=== PATIENT | female | born 1955 | race Caucasian/White ===

== ENCOUNTER 2016-08-13 15:50 | Observation (INO) | payer OTHER ==
[~2016-08-13] VITALS: Ht 160 cm; Wt 38.5 kg
[~2016-08-13 15:50] MED LIST: ESCI20TA PO; HYDR-3533 PO; LISI10TA3 PO; OMEP20TA PO; PROP20TA3 PO
[2016-08-13 15:52] VITALS: BP 138/75; PULSE 81; RESP 14; TEMP 98.4; O2SAT 97
[2016-08-13 17:32] LABS: AUTOMATED NEUTROPHIL # 7.4 TH/MM3 (1.8-7.7); BASOPHIL # 0.1 TH/MM3 (0-0.2); BASOPHIL % 0.5 % (0.0-2.0); EOSINOPHIL # 0.1 TH/MM3 (0-0.4); HEMATOCRIT 40.1 % (35.0-46.0); HEMO FLAGS DIFF FINAL; LYMPHOCYTE # 3.1 TH/MM3 (1.0-4.8); MEAN CORPUSCULAR HEMOGLOBIN 32.1 PG (27.0-34.0); MEAN CORPUSCULAR HGB CONC 34.5 % (32.0-36.0); NEUT % 64.5 % (16.0-70.0); PLATELET COUNT 265 TH/MM3 (150-450); RED BLOOD COUNT 4.31 MIL/MM3 (4.00-5.30); RED CELL DISTRIBUTION WIDTH 13.4 % (11.6-17.2); WHITE BLOOD COUNT 11.5 TH/MM3 (4.0-11.0)
[2016-08-13 17:58] LABS: ALKALINE PHOSPHATASE 72 U/L (45-117); TOTAL BILIRUBIN ADULT 0.4 MG/DL (0.2-1.0)
[2016-08-13 18:11] LABS: ALT (GPT) 26 U/L (10-53); ANION GAP 8 MEQ/L (5-15); AST (GOT) 27 U/L (15-37); BICARBONATE 28.5 MEQ/L (21.0-32.0); BLOOD UREA NITROGEN 18 MG/DL (7-18); CHLORIDE 90 MEQ/L (98-107); GLOMERULAR FILTRATION RATE 74 ML/MIN (>89); POTASSIUM 3.8 MEQ/L (3.5-5.1); SODIUM (NA) 126 MEQ/L (136-145)
--- NOTE | 2016-08-13 18:39 | PD ---
HPI Chief Complaint: GI Complaint Time Seen by Provider: 18:38 Travel History International Travel<30 days: No Contact w/Intl Traveler<30days: No Traveled to known affect area: No History of Present Illness HPI 61-year-old female came to the emergency room with her with long- standing history of nausea, vomiting, poor appetite, depression and chronic back pain. She says that she knows she needs to be seen and get workup but she does not have the money to do it. Meanwhile she is losing weight. Patient is an occasional drinker of alcohol and smoker. Vital signs were within normal limits. Blood test was done prior to her coming into the ER in triage which showed elevated lipase and hyponatremia. [facility] Past Medical History Narrative Medical List of her past medical history as reviewed from the nursing note. Heart Rhythm Problems: No Cardiac Catheterization: No Cardiovascular Problems: Yes (cp today) High Cholesterol: No Congestive Heart Failure: No Diabetes: No Hypertension: Yes Respiratory: Yes (ASTHMA) Past Surgical History Coronary Artery Bypass Graft: No Tonsillectomy: Yes Social History Alcohol Use: Yes (occ) Tobacco Use: Yes (1/3 a pack a day ) Substance Use: No Allergies-Medications (Allergen,Severity, Reaction): Coded Allergies: No Known Allergies (Verified , 08/13/16) Comments No known drug allergies. Reported Meds & Prescriptions Reported Meds & Active Scripts Active Lisinopril 10 Mg Tab 10 Mg PO DAILY Propranolol (Propranolol HCl) 20 Mg Tab 20 Mg PO Q12HR Omeprazole 20 Mg Tab 20 Mg PO DAILY Escitalopram (Escitalopram Oxalate) 20 Mg Tab 20 Mg PO DAILY Reported Lortab (Hydrocodone-Acetaminophen) 5-325 Mg Tab 1 Tab PO BID PRN Narrative Medication List of her home medications reviewed from the nursing note. Review of Systems Except as stated in HPI: all other systems reviewed are Neg Physical Exam Narrative GENERAL: Awake, alert, moderate distress SKIN: Warm and dry. HEAD: Atraumatic. Normocephalic. EYES: Pupils equal and round. No scleral icterus. No injection or drainage. ENT: No nasal bleeding or discharge. Mucous membranes pink and moist. NECK: Trachea midline. No JVD. CARDIOVASCULAR: Regular rate and rhythm. No murmur appreciated. RESPIRATORY: No accessory muscle use. Clear to auscultation. Breath sounds equal bilaterally. GASTROINTESTINAL: Abdomen soft, epigastric tenderness, nondistended. Hepatic and splenic margins not palpable. MUSCULOSKELETAL: No obvious deformities. No clubbing. No cyanosis. No edema. NEUROLOGICAL: Awake and alert. No obvious cranial nerve deficits. Motor grossly within normal limits. Normal speech. PSYCHIATRIC: Appropriate mood and affect; insight and judgment normal. Data Data Last Documented VS Vital Signs Date Time Temp Pulse Resp B/P Pulse Ox O2 Delivery O2 Flow Rate FiO2 08/13/16 18:43 71 18 150/75 99 Room Air 08/13/16 15:52 98.4 Orders Complete Blood Count With Diff (08/13/16 16:56) Comprehensive Metabolic Panel (08/13/16 16:56) Urinalysis - C+S If Indicated (08/13/16 16:56) Lipase (08/13/16 16:56) Sodium Chlor 0.9% 1000 Ml Inj (Ns 1000 M (08/13/16 19:00) Ondansetron Inj (Zofran Inj) (08/13/16 19:00) Ct Abd/Pel W Iv Contrast(Rout) (08/13/16 ) Iohexol 350 Inj (Omnipaque 350 Inj) (08/13/16 19:07) Urine Culture (08/13/16 19:10) Ceftriaxone Inj (Rocephin Inj) (08/13/16 19:45) Admit Order (Ed Use Only) (08/13/16 19:58) Labs Laboratory Tests Test 08/13/16 08/13/16 17:15 19:10 White Blood Count 11.5 TH/MM3 Red Blood Count 4.31 MIL/MM3 Hemoglobin 13.8 GM/DL Hematocrit 40.1 % Mean Corpuscular Volume 93.0 FL Mean Corpuscular Hemoglobin 32.1 PG Mean Corpuscular Hemoglobin 34.5 % Concent Red Cell Distribution Width 13.4 % Platelet Count 265 TH/MM3 Mean Platelet Volume 7.4 FL Neutrophils (%) (Auto) 64.5 % Lymphocytes (%) (Auto) 27.0 % Monocytes (%) (Auto) 7.0 % Eosinophils (%) (Auto) 1.0 % Basophils (%) (Auto) 0.5 % Neutrophils # (Auto) 7.4 TH/MM3 Lymphocytes # (Auto) 3.1 TH/MM3 Monocytes # (Auto) 0.8 TH/MM3 Eosinophils # (Auto) 0.1 TH/MM3 Basophils # (Auto) 0.1 TH/MM3 CBC Comment DIFF FINAL Differential Comment Sodium Level 126 MEQ/L Potassium Level 3.8 MEQ/L Chloride Level 90 MEQ/L Carbon Dioxide Level 28.5 MEQ/L Anion Gap 8 MEQ/L Blood Urea Nitrogen 18 MG/DL Creatinine 0.79 MG/DL Estimat Glomerular Filtration 74 ML/MIN Rate Random Glucose 117 MG/DL Calcium Level 8.9 MG/DL Total Bilirubin 0.4 MG/DL Aspartate Amino Transf 27 U/L (AST/SGOT) Alanine Aminotransferase 26 U/L (ALT/SGPT) Alkaline Phosphatase 72 U/L Total Protein 7.1 GM/DL Albumin 3.8 GM/DL Lipase 728 U/L Urine Color YELLOW Urine Turbidity CLEAR Urine pH 7.0 Urine Specific [place] 1.010 Urine Protein TRACE mg/dL Urine Glucose (UA) NEG mg/dL Urine Ketones TRACE mg/dL Urine Occult Blood TRACE Urine Nitrite NEG Urine Bilirubin NEG Urine Urobilinogen 0.2 MG/DL Urine Leukocyte Esterase LARGE Urine RBC 15 /hpf Urine WBC 73 /hpf Urine Squamous Epithelial 2 /hpf Cells Microscopic Urinalysis Comment CULTURE INDICATED MDM Medical Decision Making Medical Screen Exam Complete: Yes Emergency Medical Condition: Yes Medical Record Reviewed: Yes Differential Diagnosis Acute pancreatitis, acute cholecystitis, dehydration, hyponatremia Narrative Course 6:55 PM I ordered a CAT scan of her abdomen and in analysis. CAT scan ordered IV fluid bolus and Zofran for her nausea. Case will be signed over to the oncoming ER physician. Procedures EKG Prior to Arrival: Chel De La Cruz MD Aug 13, 2016 18:39
[2016-08-13 18:43] VITALS: BP 150/75; PULSE 71; RESP 18; O2SAT 99
[2016-08-13] MEDS ORDERED: SODIUM CHLOR 0.9% 1000 ML INJ 1,000 ML IV ONE (19:00)
[2016-08-13] MEDS ORDERED: ONDANSETRON HCL 4 MG/2 ML VIAL IV PUSH ONE (19:00)
[2016-08-13] MEDS ORDERED: IOHEXOL 350 MG/ML 10 ML VIAL (for RAD DIAG) IV ONE (19:07)
--- NOTE | 2016-08-13 19:17 | RADRPT ---
EXAM DATE/TIME: 08/13/2016 19:04 [facility] COMPARISON: No previous studies available for comparison. INDICATIONS : Vomiting, diarrhea, weakness and dizziness. IV CONTRAST: 94 cc Omnipaque 350 (iohexol) IV ORAL CONTRAST: No oral contrast ingested. RADIATION DOSE: 4.88 CTDIvol (mGy) MEDICAL HISTORY : Hypertension. Hepatitis C. Scoliosis. SURGICAL HISTORY : Hysterectomy. ENCOUNTER: Initial ACUITY: 1 day PAIN SCALE: 0/10 LOCATION: Abdomen/pelvis TECHNIQUE: Volumetric scanning of the abdomen and pelvis was performed. Using automated exposure control and ad justment of the mA and/or kV according to patient size, radiation dose was kept as low as reasonably achievable to obtain optimal diagnostic quality images. FINDINGS: Calcified splenic granulomas are noted. The bilateral kidneys, adrenal glands, pancreas, liver and ga llbladder are normal in appearance. Stomach unremarkable. Urinary bladder unremarkable. There are no adnexal masses. No evidence of bowel obstruction. The appendix is not definitively visualized. Dextro scoliosis of the spine and degenerative changes. Lung bases are clear. CONCLUSION: 1. Calcified splenic granulomas. 2. No definite inflammatory changes are seen within the abdomen or pelvis. Brady Swanson MD on August 13, 2016 at 19:13 Board Certified Radiologist. This report was verified electronically.
--- NOTE | 2016-08-13 19:35 | PD ---
Physical Exam Narrative Received sign out from previous team to follow up CTa/p and reevaluate. This is a 61yo F with HTN, depression and chronic back pain here with not feeling well. Pt states she has not gotten out of bed for 4 days, not eating much, nauseous, and having nonbloody diarrhea. Pt complains of generalized fatigue. Labs showed mild leukocytosis at 11.5. CMP showed mild hyponatremia at 126 and mild decreased in chloride at 90. Lipase mildly increased at 728. Pt still with some epigastric ttp on exam. UA showed WBC of 73 and large leukocyte. Pt given ceftriaxone 1gm IV. Pt given zofran and NS IVF by previous team. Pt feels generalized weakness, does not feel she is able to get out of bed and not able to eat. Will admit pt for dehydration and pancreatitis. Discussed with Dr. Aviles and accepted for observation. Data Data Last Documented VS Vital Signs Date Time Temp Pulse Resp B/P Pulse Ox O2 Delivery O2 Flow Rate FiO2 08/13/16 18:43 71 18 150/75 99 Room Air 08/13/16 15:52 98.4 Orders Complete Blood Count With Diff (08/13/16 16:56) Comprehensive Metabolic Panel (08/13/16 16:56) Urinalysis - C+S If Indicated (08/13/16 16:56) Lipase (08/13/16 16:56) Sodium Chlor 0.9% 1000 Ml Inj (Ns 1000 M (08/13/16 19:00) Ondansetron Inj (Zofran Inj) (08/13/16 19:00) Ct Abd/Pel W Iv Contrast(Rout) (08/13/16 ) Iohexol 350 Inj (Omnipaque 350 Inj) (08/13/16 19:07) Urine Culture (08/13/16 19:10) Ceftriaxone Inj (Rocephin Inj) (08/13/16 19:45) Admit Order (Ed Use Only) (08/13/16 19:58) Labs Laboratory Tests Test 08/13/16 08/13/16 17:15 19:10 White Blood Count 11.5 TH/MM3 Red Blood Count 4.31 MIL/MM3 Hemoglobin 13.8 GM/DL Hematocrit 40.1 % Mean Corpuscular Volume 93.0 FL Mean Corpuscular Hemoglobin 32.1 PG Mean Corpuscular Hemoglobin 34.5 % Concent Red Cell Distribution Width 13.4 % Platelet Count 265 TH/MM3 Mean Platelet Volume 7.4 FL Neutrophils (%) (Auto) 64.5 % Lymphocytes (%) (Auto) 27.0 % Monocytes (%) (Auto) 7.0 % Eosinophils (%) (Auto) 1.0 % Basophils (%) (Auto) 0.5 % Neutrophils # (Auto) 7.4 TH/MM3 Lymphocytes # (Auto) 3.1 TH/MM3 Monocytes # (Auto) 0.8 TH/MM3 Eosinophils # (Auto) 0.1 TH/MM3 Basophils # (Auto) 0.1 TH/MM3 CBC Comment DIFF FINAL Differential Comment Sodium Level 126 MEQ/L Potassium Level 3.8 MEQ/L Chloride Level 90 MEQ/L Carbon Dioxide Level 28.5 MEQ/L Anion Gap 8 MEQ/L Blood Urea Nitrogen 18 MG/DL Creatinine 0.79 MG/DL Estimat Glomerular Filtration 74 ML/MIN Rate Random Glucose 117 MG/DL Calcium Level 8.9 MG/DL Total Bilirubin 0.4 MG/DL Aspartate Amino Transf 27 U/L (AST/SGOT) Alanine Aminotransferase 26 U/L (ALT/SGPT) Alkaline Phosphatase 72 U/L Total Protein 7.1 GM/DL Albumin 3.8 GM/DL Lipase 728 U/L Urine Color YELLOW Urine Turbidity CLEAR Urine pH 7.0 Urine Specific [place] 1.010 Urine Protein TRACE mg/dL Urine Glucose (UA) NEG mg/dL Urine Ketones TRACE mg/dL Urine Occult Blood TRACE Urine Nitrite NEG Urine Bilirubin NEG Urine Urobilinogen 0.2 MG/DL Urine Leukocyte Esterase LARGE Urine RBC 15 /hpf Urine WBC 73 /hpf Urine Squamous Epithelial 2 /hpf Cells Microscopic Urinalysis Comment CULTURE INDICATED MDM Supervised Visit with JAY: No Diagnosis Primary Impression: Pancreatitis Qualified Code: K85.90 - Acute pancreatitis, unspecified complication status, unspecified pancreatitis type Admitting Information Admitting Physician Requests: Lissette Perales DO Aug 13, 2016 19:35
[2016-08-13 19:37] LABS: GLUCOSE,URINE NEG (NEG); KETONE, URINE TRACE mg/dL (NEG); NITRITE,URINE NEG (NEG); URINE COLOR YELLOW (YELLW/STRAW)
[2016-08-13 19:38] LABS: BLOOD, URINE TRACE (NEG)
[2016-08-13 19:39] LABS: SQUAMOUS EPITHELIAL CELL URINE 2 /hpf (0-5)
[2016-08-13 19:41] LABS: COMMENT (UR) CULTURE INDICATED; CULTURE IF INDICATED CULTURE INDICATED
[2016-08-13] MEDS ORDERED: cefTRIAXone INJ 1,000 MG in SODIUM CHLORIDE 0.9% INJ 100 ML IV ONE (19:45)
[2016-08-13] MEDS ORDERED: ONDANSETRON HCL 4 MG/2 ML VIAL IVP PRN (20:00)
[2016-08-13] MEDS ORDERED: NALOXONE HCL 0.4 MG/ML AMP IV PRN (20:00)
[2016-08-13] MEDS ORDERED: SODIUM CHLORIDE 0.9% FLUSH 5 ML FLUSH FLUSH PRN (20:00)
[2016-08-13] MEDS: SODIUM CHLOR 0.9% 1000 ML INJ 1,000 ML IV SCH (20:45)
[2016-08-13] MEDS: SODIUM CHLORIDE 0.9% FLUSH 5 ML FLUSH FLUSH SCH (21:00)
[2016-08-13 23:00] VITALS: BP 134/65; PULSE 72; RESP 16
[2016-08-14] VITALS (7 sets, daily range): BP systolic 141–164; BP diastolic 69–84; PULSE 68–104; RESP 16–18; O2SAT 95–97
[2016-08-14 04:28] LABS: AUTOMATED NEUTROPHIL # 4.5 TH/MM3 (1.8-7.7); BASOPHIL % 0.3 % (0.0-2.0); EOSINOPHIL # 0.1 TH/MM3 (0-0.4); EOSINOPHIL % 1.1 % (0.0-4.0); HEMATOCRIT 36.2 % (35.0-46.0); HEMO FLAGS DIFF FINAL; LYMPH % 35.4 % (9.0-44.0); LYMPHOCYTE # 2.9 TH/MM3 (1.0-4.8); MEAN CELL VOLUME 92.7 FL (80.0-100.0); MEAN CORPUSCULAR HEMOGLOBIN 31.7 PG (27.0-34.0); MEAN CORPUSCULAR HGB CONC 34.2 % (32.0-36.0); MONO % 7.7 % (0.0-8.0); NEUT % 55.5 % (16.0-70.0); PLATELET COUNT 187 TH/MM3 (150-450); RED BLOOD COUNT 3.91 MIL/MM3 (4.00-5.30); RED CELL DISTRIBUTION WIDTH 13.4 % (11.6-17.2); WHITE BLOOD COUNT 8.1 TH/MM3 (4.0-11.0)
[2016-08-14 05:11] LABS: ALKALINE PHOSPHATASE 60 U/L (45-117); ALT (GPT) 20 U/L (10-53); ANION GAP 7 MEQ/L (5-15); AST (GOT) 17 U/L (15-37); BICARBONATE 29.6 MEQ/L (21.0-32.0); BLOOD UREA NITROGEN 8 MG/DL (7-18); CHLORIDE 96 MEQ/L (98-107); GLOMERULAR FILTRATION RATE 112 ML/MIN (>89); POTASSIUM 3.3 MEQ/L (3.5-5.1); SODIUM (NA) 133 MEQ/L (136-145); TOTAL BILIRUBIN ADULT 0.4 MG/DL (0.2-1.0)
[2016-08-14] MEDS: SODIUM CHLOR 0.9% 1000 ML INJ 1,000 ML IV SCH (05:11)
--- NOTE | 2016-08-14 05:54 | HHI.HP ---
[facility] YARELI Agee Admission Diagnosis Pancreatitis Diagnoses: (1) Pancreatitis (2) UTI (urinary tract infection) (3) Anxiety (4) Depression (5) Hypokalemia (6) Hyponatremia Chief Complaint: Abdominal pain Travel History International Travel<30 Days: No Contact w/Intl Traveler <30 Da: No Traveled to Known Affected Are: No History of Present Illness Mrs. Soto is a 61 year-old female with a past medical history of GERD, osteoporosis, anxiety, depression, and hypertension who presented to the ER on 08/13/16 with complaint of abdominal pain, nausea, vomiting, depression, and anxiety x 4 days; symptoms severe. Labs show elevated lipase of 728 and hyponatremia with sodium 126. Patient is seen in ER holding area. She states that she didn't sleep well Friday or Friday night. She reports a large amount of stress in her family because her 33 year-old son went missing from rehab (alcoholism). States she's never been more depressed in her life. About six months ago was placed on Lexapro for antidepressant medications and propranolol for hypertension, tension headaches and some degree of anxiety relief. Symptoms: Cough. Dizzy. Weak. Abd pain. Nausea. Diarrhea. Poor appetite. Shortness of breath with "panic attacks" only. Denies black or tarry stool, fever. No history of pancreatitis. No alcohol intake. Denies diabetes mellitus, copd, kidney/liver problems, thyroid problems, seizures. . Review of Systems Constitutional: COMPLAINS OF: Fatigue, Dizziness, DENIES: Fever Respiratory: COMPLAINS OF: Cough, Shortness of breath (with panic attacks only) Gastrointestinal: COMPLAINS OF: Abdominal pain, DENIES: Black stools, Bloody stools Neurologic: DENIES: Localized weakness (generalized weakness only), Seizures Psychiatric: COMPLAINS OF: Anxiety, Depression Past Family Social History Past Medical History GERD Osteoporosis Anxiety Depression Hypertension Scoliosis . Past Surgical History Tonsillectomy . Reported Medications Reported Meds & Active Scripts Active Lisinopril 10 Mg Tab 10 Mg PO DAILY Propranolol (Propranolol HCl) 20 Mg Tab 20 Mg PO Q12HR Omeprazole 20 Mg Tab 20 Mg PO DAILY Escitalopram (Escitalopram Oxalate) 20 Mg Tab 20 Mg PO DAILY Reported Lortab (Hydrocodone-Acetaminophen) 5-325 Mg Tab 1 Tab PO BID PRN Allergies: Coded Allergies: No Known Allergies (Verified , 08/13/16) Active Ordered Medications Current Medications Sodium Chloride (NS 1000 ml Inj) 1,000 ml @ 999 mls/hr BOLUS ONCE IV Last administered on 08/13/16 19:09; Start 08/13/16 at 19:00; Stop 08/13/16 at 20:00 ; Status DC Ondansetron HCl (Zofran Inj) 4 mg ONCE ONCE IV PUSH Last administered on 19:14; Start 08/13/16 at 19:00; Stop 08/13/16 at 19:01; Status DC Iohexol 70 ml 70 ml STK-MED ONCE IV Last administered on 08/13/16 19:07; Start 08/13/16 at 19:07; Stop 08/13/16 at 19:08; Status DC Ceftriaxone Sodium 1000 mg/ Sodium Chloride 100 ml @ 200 mls/hr ONCE ONCE IV Last administered on 08/13/16 19:51; Start 08/13/16 at 19:45; Stop 08/13/16 at 20:14; Status DC Sodium Chloride (NS 1000 ml Inj) 1,000 ml @ 100 mls/hr Q10H IV Last administered on 08/14/16 05:11; Start 08/13/16 at 20:00 IV Flush (NS Flush) 2 ml UNSCH PRN FLUSH FLUSH AFTER USING IV ACCESS; Start 05/20 at 20:00 IV Flush (NS Flush) 2 ml BID FLUSH ; Start 08/13/16 at 21:00 Ondansetron HCl (Zofran Inj) 4 mg Q6H PRN IVP NAUSEA OR VOMITING; Start at 20:00 Naloxone HCl 0.4 mg 0.4 mg UNSCH PRN IV SEE LABEL COMMENTS; Start 08/13/16 at 20:00 Ciprofloxacin/ Dextrose (Cipro 400 Mg Premix) 200 ml @ 200 mls/hr Q12H IV ; Start 08/14/16 at 08:00 Family History Mother with hypertension, Alzheimer's Father with liver CA, alcoholism, COPD Grandfather with [employer] Son with alcoholism Sister with FCBD . Social History Tobacco: smokes a few cigarettes per day for years Alcohol: none Illicit Drugs: none . Physical Exam Vital Signs Vital Signs Date Time Temp Pulse Resp B/P Pulse Ox O2 Delivery O2 Flow Rate FiO2 08/14/16 00:00 68 16 148/77 08/13/16 23:00 72 16 134/65 08/13/16 18:43 71 18 150/75 99 Room Air 08/13/16 18:43 17 08/13/16 15:52 98.4 81 14 138/75 97 Room Air Physical Exam GENERAL: This is a well-nourished, well-developed patient, in no apparent distress. SKIN: No rashes, ecchymoses or lesions. Cool and dry. HEAD: Atraumatic. Normocephalic. EYES: No scleral icterus. No injection or drainage. ENT: Nose without bleeding, purulent drainage. NECK: Trachea midline. No JVD or lymphadenopathy. CARDIOVASCULAR: Regular rate and rhythm without murmurs, gallops, or rubs. RESPIRATORY: Clear to auscultation. Breath sounds equal bilaterally. No wheezes , rales, or rhonchi. GASTROINTESTINAL: Abdomen soft, somewhat tender with palpation, nondistended. No guarding. Normal bowel sounds. MUSCULOSKELETAL: Extremities without clubbing, cyanosis, or edema. No calf tenderness. NEUROLOGICAL: Awake and alert. Appears sad in mood. Motor and sensory grossly within normal limits. Normal speech. . Laboratory Laboratory Tests Test 08/13/16 08/13/16 08/14/16 17:15 19:10 03:53 White Blood Count 11.5 8.1 Red Blood Count 4.31 3.91 Hemoglobin 13.8 12.4 Hematocrit 40.1 36.2 Mean Corpuscular Volume 93.0 92.7 Mean Corpuscular Hemoglobin 32.1 31.7 Mean Corpuscular Hemoglobin 34.5 34.2 Concent Red Cell Distribution Width 13.4 13.4 Platelet Count 265 187 Mean Platelet Volume 7.4 7.4 Neutrophils (%) (Auto) 64.5 55.5 Lymphocytes (%) (Auto) 27.0 35.4 Monocytes (%) (Auto) 7.0 7.7 Eosinophils (%) (Auto) 1.0 1.1 Basophils (%) (Auto) 0.5 0.3 Neutrophils # (Auto) 7.4 4.5 Lymphocytes # (Auto) 3.1 2.9 Monocytes # (Auto) 0.8 0.6 Eosinophils # (Auto) 0.1 0.1 Basophils # (Auto) 0.1 0.0 CBC Comment DIFF FINAL DIFF FINAL Differential Comment Sodium Level 126 133 Potassium Level 3.8 3.3 Chloride Level 90 96 Carbon Dioxide Level 28.5 29.6 Anion Gap 8 7 Blood Urea Nitrogen 18 8 Creatinine 0.79 0.55 Estimat Glomerular Filtration 74 112 Rate Random Glucose 117 99 Calcium Level 8.9 8.0 Total Bilirubin 0.4 0.4 Aspartate Amino Transf 27 17 (AST/SGOT) Alanine Aminotransferase 26 20 (ALT/SGPT) Alkaline Phosphatase 72 60 Total Protein 7.1 6.0 Albumin 3.8 3.1 Lipase 728 Urine Color YELLOW Urine Turbidity CLEAR Urine pH 7.0 Urine Specific [place] 1.010 Urine Protein TRACE Urine Glucose (UA) NEG Urine Ketones TRACE Urine Occult Blood TRACE Urine Nitrite NEG Urine Bilirubin NEG Urine Urobilinogen 0.2 Urine Leukocyte Esterase LARGE Urine RBC 15 Urine WBC 73 Urine Squamous Epithelial 2 Cells Microscopic Urinalysis Comment CULTURE INDICATED Date/Time Procedure Status Source Growth 08/13/16 19:10 Urine Culture Received Urine Clean Catch Pending Result Diagram: 08/14/16 0353 08/14/16 0353 Imaging Last Impressions Abdomen/Pelvis CT 08/13/16 0000 Signed Impressions: Service Date/Time: Saturday, August 13, 2016 19:04 - CONCLUSION: 1. Calcified splenic granulomas. 2. No definite inflammatory changes are seen within the abdomen or pelvis. Brady Swanson MD Assessment and Plan Problem List: (1) UTI (urinary tract infection) ICD Code: N39.0 Status: Acute (2) Hypokalemia ICD Code: E87.6 Status: Acute (3) Pancreatitis ICD Code: K85.90 Status: Acute (4) Anxiety ICD Code: F41.9 Status: Acute (5) Hyponatremia ICD Code: E87.1 Status: Acute (6) Depression ICD Code: F32.9 Status: Chronic Assessment and Plan Mrs. Soto is a 61 year-old female with a past medical history of GERD, osteoporosis, anxiety, depression, and hypertension who presented to the ER on 08/13/16 with complaint of abdominal pain, nausea, vomiting, depression, and anxiety x 4 days; symptoms severe. Labs show elevated lipase of 728 and hyponatremia with sodium 126. Pancreatitis - clear liquid diet - advance diet as tolerated - IVF hydration with NS with 20 meq KCl at 60 cc/hr - repeat lipase level - [place] 5/325 mg q4h PRN pain Suspected UTI - Cipro 400 mg IV q12 hours - urine sent for c and s; await results; adjust therapy if needed Anxiety Depression - restart home medications - consult psychiatry for assistance with medication management Hypokalemia - repeat potassium is 3.3 this morning - replace potassium - recheck BMP and follow trends in potassium levels - replace potassium as needed Hyponatremia - Sodium 126 on admission and 133 this a.m. - monitor sodium levels - avoid too rapid replacement (hyperosmotic demyelination) - IVF hydration decreased to NS with 20 meq KCl at 60 cc/hr (from NS at 100 cc/ hr) DVT prophylaxis - SCDs Written by Kacie Fletcher, acting as scribe for Dr. Aviles on 08/14/16 at 05:30 .The documentation accurately reflects the work performed [id number] by me on 08/14/16 at 0530 Discussed Condition With ER physician and patient . Problem Qualifiers (1) Pancreatitis: Qualified Code: K85.90 - Acute pancreatitis, unspecified complication status, unspecified pancreatitis type (2) UTI (urinary tract infection): Kacie Fletcher Aug 14, 2016 05:54 Dion Aviles MD Aug 14, 2016 08:17
[2016-08-14] MEDS ORDERED: ALUMINUM/MAGNESIUM/SIMETH 30 ML CUP PO PRN (06:00)
[2016-08-14] MEDS ORDERED: DOCUSATE SODIUM 50 MG/SENNA 8.6 MG TAB PO PRN (06:00)
[2016-08-14] MEDS ORDERED: DOCUSATE SODIUM 100 MG CAP PO PRN (06:00)
[2016-08-14] MEDS ORDERED: POTASSIUM CHLORIDE 10 MEQ CONTROLLED RELEASE TAB PO ONE (06:00)
[2016-08-14] MEDS ORDERED: MAGNESIUM HYDROXIDE SUSP 30 ML CUP PO PRN (06:00)
[2016-08-14] MEDS ORDERED: ACETAMINOPHEN 325 MG TAB PO PRN (06:00)
[2016-08-14 07:03] LABS: MAGNESIUM 1.9 MG/DL (1.5-2.5)
[2016-08-14] MEDS: SODIUM CHLORIDE 0.9% FLUSH 5 ML FLUSH FLUSH SCH ×2 (08:33→20:58)
[2016-08-14] MEDS: LISINOPRIL 10 MG TAB PO SCH (08:33)
[2016-08-14] MEDS: CIPROFLOXACIN 400 MG PREMIX 200 ML IV SCH ×2 (08:33→20:19)
[2016-08-14] MEDS: ACETAMINOPHEN/HYDROcodone 325 MG/5 MG TAB PO PRN ×2 (08:34→20:19)
[2016-08-14] MEDS: PANTOPRAZOLE SOD 20 MG DELAYED RELEASE TAB PO SCH (08:34)
[2016-08-14] MEDS: PROPRANOLOL HCL 20 MG TAB PO SCH ×2 (08:35→20:19)
[2016-08-14] MEDS ORDERED: ESCITALOPRAM OXALATE 20 MG TAB PO SCH (09:00)
--- NOTE | 2016-08-14 11:02 | HHI.PR ---
Subjective Remarks Follow-up for abdominal pain and depression. Discussed with psychiatry, the patient is depressed and suicidal, and is agreeable for voluntary inpatient psychiatric treatment. Recommended [facility] if not medically cleared. The patient was seen for follow-up of abdominal pain. She had not been able to tolerate oral intake for the past 4 days. She tolerated her clear liquid diet for breakfast. She denies any further nausea, vomiting, or abdominal pain. She denies any prior episodes like this. She does not report routine alcohol use, but did drink some at New Year's. Objective Vitals Vital Signs Date Time Temp Pulse Resp B/P Pulse Ox O2 Delivery O2 Flow Rate FiO2 08/14/16 08:31 70 18 164/84 97 Room Air 08/14/16 04:00 72 16 159/77 95 08/14/16 00:00 68 16 148/77 08/13/16 23:00 72 16 134/65 08/13/16 18:43 71 18 150/75 99 Room Air 08/13/16 18:43 17 08/13/16 15:52 98.4 81 14 138/75 97 Room Air Result Diagram: 08/14/16 0353 08/14/16 0353 Imaging Last Impressions Abdomen/Pelvis CT 08/13/16 0000 Signed Impressions: Service Date/Time: Saturday, August 13, 2016 19:04 - CONCLUSION: 1. Calcified splenic granulomas. 2. No definite inflammatory changes are seen within the abdomen or pelvis. Brady Swanson MD Objective Remarks GENERAL: Well-developed well-nourished. In no acute distress. SKIN: Warm and dry. No lesions noted. HEENT: Normocephalic. Pupils equal and round. Mucous membranes pink and moist. CARDIOVASCULAR: Regular rate and rhythm. No murmur appreciated. RESPIRATORY: No accessory muscle use. Clear to auscultation. Breath sounds equal bilaterally. GASTROINTESTINAL: Abdomen soft, mild epigastric TTP, nondistended. Bowel sounds x4. MUSCULOSKELETAL: No obvious deformities. No clubbing or cyanosis. No edema. NEUROLOGICAL: Awake and alert. No focal neurological deficits. Moves upper and lower extremities spontaneously. Normal speech. PSYCHIATRIC: Slightly depressed mood and affect; insight and judgment normal. A/P Problem List: (1) UTI (urinary tract infection) ICD Code: N39.0 Status: Acute (2) Hypokalemia ICD Code: E87.6 Status: Acute (3) Pancreatitis ICD Code: K85.90 Status: Acute (4) Anxiety ICD Code: F41.9 Status: Acute (5) Hyponatremia ICD Code: E87.1 Status: Acute (6) Depression ICD Code: F32.9 Status: Chronic Assessment and Plan Mrs. Soto is a 61 year-old female with a past medical history of GERD, osteoporosis, anxiety, depression, and hypertension who presented to the ER on 08/13/16 with complaint of abdominal pain, nausea, vomiting, depression, and anxiety x 4 days; symptoms severe. Labs show elevated lipase of 728 and hyponatremia with sodium 126. Abdominal pain Pancreatitis likely etoh Abdominal/pelvis CT, with no obvious acute process Lipase 728, improved to 677 overnight Tolerating clear liquid diet, advance as tolerated - IVF hydration - Check triglycerides - [place] 5/325 mg PRN pain - Antiemetics as needed UTI UA with evidence of UTI -Started on IV Cipro empirically, continue Cipro -Follow up results of urine culture Anxiety Depression -Continue home medications - consulted psychiatry, discussed with Dr. Seaman, recommends continued inpatient psychiatry treatment, ok for med psych Hypokalemia potassium 3.3, replaced orally - recheck BMP and follow trends in potassium levels - replace potassium as needed Hyponatremia - Sodium 126 on admission, improved to 133 this a.m. - Continue IVF, continue to decrease as patient is tolerating oral intake and diet is advance DVT prophylaxis - SCDs Written by Chance Mayo, acting as scribe for Dr. Washburn on 08/14/16 at 11:02. The documentation accurately reflects the work performed [id number] by me on at 1102 Discharge Planning Symptoms significantly improved. The patient will need medical treatment for another day with IVF as diet is advanced as tolerated. However as patient is already tolerating clear liquids, she would be okay for transfer to med psych unit for further medical and psychiatric management. Discharge patient to inpatient psychiatry Condition on discharge: Improved Clear liquid and advanced a heart healthy Diet as tolerated Regular activity Rx written: Cipro Follow-up with primary care physician 1week Problem Qualifiers (1) UTI (urinary tract infection): Qualified Code: N30.00 - Acute cystitis without hematuria (2) Pancreatitis: Qualified Code: K85.90 - Acute pancreatitis, unspecified complication status, unspecified pancreatitis type (3) Depression: Qualified Code: F32.2 - Severe single current episode of major depressive disorder, without psychotic features Chance Mayo Aug 14, 2016 11:02 Edmund Washburn MD Aug 14, 2016 18:06
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
[2016-08-14] MEDS ORDERED: POTASSIUM CHLORIDE INJ 20 MEQ in SODIUM CHLOR 0.9% 1000 ML INJ 1,000 ML IV SCH (20:00)
[2016-08-14] MEDS ORDERED: NS + KCL 20 MEQ INJ 1,000 ML IV SCH (20:00)
[2016-08-14] MEDS: clonazePAM 0.5 MG TAB PO SCH (20:19)
[2016-08-15] VITALS (8 sets, daily range): BP systolic 119–142; BP diastolic 62–70; PULSE 58–79; RESP 17–20; TEMP 97.6–98.2; O2SAT 96–98
[2016-08-15 06:53] LABS: AUTOMATED NEUTROPHIL # 3.3 TH/MM3 (1.8-7.7); BASOPHIL % 0.4 % (0.0-2.0); EOSINOPHIL # 0.1 TH/MM3 (0-0.4); EOSINOPHIL % 1.3 % (0.0-4.0); HEMATOCRIT 36.9 % (35.0-46.0); HEMO FLAGS DIFF FINAL; LYMPH % 32.9 % (9.0-44.0); LYMPHOCYTE # 1.9 TH/MM3 (1.0-4.8); MEAN CORPUSCULAR HEMOGLOBIN 32.4 PG (27.0-34.0); MEAN CORPUSCULAR HGB CONC 34.5 % (32.0-36.0); MONO % 7.9 % (0.0-8.0); NEUT % 57.5 % (16.0-70.0); PLATELET COUNT 185 TH/MM3 (150-450); RED BLOOD COUNT 3.93 MIL/MM3 (4.00-5.30); RED CELL DISTRIBUTION WIDTH 13.3 % (11.6-17.2); WHITE BLOOD COUNT 5.8 TH/MM3 (4.0-11.0)
[2016-08-15 07:23] LABS: ALKALINE PHOSPHATASE 61 U/L (45-117); ALT (GPT) 21 U/L (10-53); ANION GAP 7 MEQ/L (5-15); AST (GOT) 18 U/L (15-37); BICARBONATE 28.9 MEQ/L (21.0-32.0); BLOOD UREA NITROGEN 3 MG/DL (7-18); CHLORIDE 103 MEQ/L (98-107); GLOMERULAR FILTRATION RATE 131 ML/MIN (>89); POTASSIUM 3.6 MEQ/L (3.5-5.1); SODIUM (NA) 139 MEQ/L (136-145); TOTAL BILIRUBIN ADULT 0.4 MG/DL (0.2-1.0)
--- NOTE | 2016-08-15 07:49 | HHI.PR ---
Subjective Remarks Follow-up for abdominal pain and depression. The patient denies any further abdominal pain, nausea, or vomiting. She has been tolerating clear liquids, and would like to try to advance her diet. Objective Vitals Vital Signs Date Time Temp Pulse Resp B/P Pulse Ox O2 Delivery O2 Flow Rate FiO2 08/15/16 06:43 77 08/15/16 03:51 98.2 60 18 120/69 96 08/15/16 01:08 97.6 58 20 119/66 98 08/15/16 00:03 68 17 142/70 97 Room Air 08/14/16 22:00 18 08/14/16 20:00 72 18 147/71 97 Room Air 08/14/16 17:12 69 18 151/76 96 Room Air 08/14/16 12:46 71 18 142/81 95 Room Air 08/14/16 08:31 70 18 164/84 97 Room Air Result Diagram: 08/15/16 0554 08/15/16 0554 Imaging Last Impressions Abdomen/Pelvis CT 08/13/16 0000 Signed Impressions: Service Date/Time: Saturday, August 13, 2016 19:04 - CONCLUSION: 1. Calcified splenic granulomas. 2. No definite inflammatory changes are seen within the abdomen or pelvis. Brady Swanson MD Objective Remarks GENERAL: Well-developed well-nourished. In no acute distress. SKIN: Warm and dry. No lesions noted. HEENT: Normocephalic. Pupils equal and round. Mucous membranes pink and moist. CARDIOVASCULAR: Regular rate and rhythm. No murmur appreciated. RESPIRATORY: No accessory muscle use. Clear to auscultation. Breath sounds equal bilaterally. GASTROINTESTINAL: Abdomen soft, mild epigastric TTP, nondistended. Bowel sounds x4. MUSCULOSKELETAL: No obvious deformities. No clubbing or cyanosis. No edema. NEUROLOGICAL: Awake and alert. No focal neurological deficits. Moves upper and lower extremities spontaneously. Normal speech. PSYCHIATRIC: Slightly depressed mood and affect; insight and judgment normal. A/P Problem List: (1) UTI (urinary tract infection) ICD Code: N39.0 Status: Acute (2) Hypokalemia ICD Code: E87.6 Status: Acute (3) Pancreatitis ICD Code: K85.90 Status: Acute (4) Anxiety ICD Code: F41.9 Status: Acute (5) Hyponatremia ICD Code: E87.1 Status: Acute (6) Depression ICD Code: F32.9 Status: Chronic Assessment and Plan Mrs. Soto is a 61 year-old female with a past medical history of GERD, osteoporosis, anxiety, depression, and hypertension who presented to the ER on 08/13/16 with complaint of abdominal pain, nausea, vomiting, depression, and anxiety x 4 days; symptoms severe. Labs show elevated lipase of 728 and hyponatremia with sodium 126. Abdominal Pancreatitis, possibly alcohol induced Abdominal/pelvis CT, with no obvious acute process Lipase initially 728, trended down to 458 Tolerating clear liquid diet, change to full liquids and advance as tolerated - IVF hydration - Check triglycerides - [place] 5/325 mg PRN pain - Antiemetics as needed UTI UA with evidence of UTI -Started on IV Cipro empirically, continue Cipro -Follow up results of urine culture Anxiety Depression -Continue home medications - consulted psychiatry, discussed with Dr. Seaman, recommends continued inpatient psychiatry treatment, ok for med psych Hypokalemia potassium 3.3, replaced orally, now 3.6, resolved Hyponatremia - Sodium 126 on admission, improved to 133, now 139 on repeat BMP - Continue IVF, continue to decrease as patient tolerates oral intake and diet is advance DVT prophylaxis - SCDs Discharge Planning Symptoms continue to improve significantly. Tolerating diet, DC IVF. Urine cultures no growth, DC Cipro. The patient is medically clear this time for inpatient psychiatry Discharge patient to inpatient psychiatry Condition on discharge: Improved Full liquid liquid and advanced a heart healthy Diet as tolerated Regular activity Rx written: None Follow-up with primary care physician and psychiatry Attending Statement The exam, history, and the medical decision-making described in the above note were completed with the assistance of the mid-level provider. I reviewed and agree with the findings presented. I attest that I had a [id number] encounter with the patient on the same day, and personally performed and documented my assessment and findings in the medical record. Problem Qualifiers (1) UTI (urinary tract infection): Qualified Code: N30.00 - Acute cystitis without hematuria (2) Pancreatitis: Qualified Code: K85.90 - Acute pancreatitis, unspecified complication status, unspecified pancreatitis type (3) Depression: Qualified Code: F32.2 - Severe single current episode of major depressive disorder, without psychotic features Chance Mayo Aug 15, 2016 07:49 John Walsh MD Sep 09, 2016 02:03
[2016-08-15] MEDS: clonazePAM 0.5 MG TAB PO SCH (08:53)
[2016-08-15] MEDS: PANTOPRAZOLE SOD 20 MG DELAYED RELEASE TAB PO SCH (08:54)
[2016-08-15] MEDS: PROPRANOLOL HCL 20 MG TAB PO SCH (08:54)
[2016-08-15] MEDS: CIPROFLOXACIN 400 MG PREMIX 200 ML IV SCH (08:54)
[2016-08-15] MEDS: LISINOPRIL 10 MG TAB PO SCH (08:54)
[2016-08-15] MEDS: SODIUM CHLORIDE 0.9% FLUSH 5 ML FLUSH FLUSH SCH (08:54)
[2016-08-15] MEDS: ACETAMINOPHEN/HYDROcodone 325 MG/5 MG TAB PO PRN (08:59)
[2016-08-15] MEDS ORDERED: ESCITALOPRAM OXALATE 20 MG TAB PO SCH (09:00)
[2016-09-19] MEDS ORDERED: DULO1CAP3 PO (15:34)
[2016-11-12] MEDS ORDERED: MELO7.5T4 PO ×2 (10:06→10:18)
[2016-11-12] MEDS ORDERED: LURA20TA PO (10:06)
[2016-11-12] MEDS ORDERED: CYMB30CA PO (10:06)
[2016-11-12] MEDS ORDERED: CHLOR50 PO (10:06)
[2016-11-12] MEDS ORDERED: LISI-515 PO (10:19)
[2016-11-12] MEDS ORDERED: METH125I2 IM (10:24)
== END 2016-08-15 18:09 ==
LOC: NEPC 15:50 → NEDA 20:00 → NEDH 08-14 00:42 → NEPFCDU 08-15 01:09
PROVIDERS: ADMIT Internal Medicine; ATTEND Internal Medicine
DX: K85.90 Acute pancreatitis without necrosis or infection, unspecified (principal); N39.0 Urinary tract infection, site not specified; F32.2 Major depressive disorder, single episode, severe without psychotic features; F41.0 Panic disorder [episodic paroxysmal anxiety]; E86.0 Dehydration; E87.1 Hypo-osmolality and hyponatremia; E87.6 Hypokalemia; I10 Essential (primary) hypertension; K21.9 Gastro-esophageal reflux disease without esophagitis; J45.909 Unspecified asthma, uncomplicated; M54.9 Dorsalgia, unspecified; G89.29 Other chronic pain; M41.9 Scoliosis, unspecified; M81.0 Age-related osteoporosis without current pathological fracture; F17.210 Nicotine dependence, cigarettes, uncomplicated; R45.851 Suicidal ideations
CPT/HCPCS: 74177; 80053; 81001; 83690; 83735; 84478; 85025; 87086; 96361; 96374; 96375; 99285; G0378; J0696; J0744; J2405; J3480; J7030; Q9967

== ENCOUNTER 2016-08-15 18:24 | Inpatient (IN) | payer SELFPAY ==
[~2016-08-15] VITALS: Ht 160 cm; Wt 40.2 kg
[2016-08-15 18:00] VITALS: BP 165/84; PULSE 69; RESP 16; TEMP 98.6; O2SAT 98
[2016-08-15] MEDS ORDERED: ALUMINUM/MAGNESIUM/SIMETH 30 ML CUP PO PRN (19:15)
[2016-08-15] MEDS ORDERED: MAGNESIUM HYDROXIDE SUSP 30 ML CUP PO PRN (19:15)
[2016-08-15] MEDS ORDERED: LORazepam 2 MG/ML VIAL IM PRN (19:15)
[2016-08-15] MEDS ORDERED: LORazepam 1 MG TAB PO PRN (19:15)
[2016-08-15] MEDS: PROPRANOLOL HCL 20 MG TAB PO SCH (21:00)
[2016-08-15] MEDS: clonazePAM 0.5 MG TAB PO SCH (21:00)
[2016-08-16 06:19] VITALS: BP 158/80; PULSE 69; RESP 17; TEMP 97.5
[2016-08-16] MEDS: PROPRANOLOL HCL 20 MG TAB PO SCH ×2 (08:36→20:24)
[2016-08-16] MEDS: ACETAMINOPHEN/HYDROcodone 325 MG/5 MG TAB PO SCH (08:36)
[2016-08-16] MEDS: LISINOPRIL 10 MG TAB PO SCH (08:37)
[2016-08-16] MEDS: PANTOPRAZOLE SOD 20 MG DELAYED RELEASE TAB PO SCH (08:37)
[2016-08-16] MEDS: clonazePAM 0.5 MG TAB PO SCH ×2 (08:39→20:24)
[2016-08-16] MEDS ORDERED: ESCITALOPRAM OXALATE 20 MG TAB PO SCH (09:00)
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
[2016-08-16] MEDS: DULoxetine HCl DR 60 MG CAP PO SCH (13:10)
--- NOTE | 2016-08-16 13:29 | PD.CONS ---
HPI Service [facility] Consult Requested By Psychiatry Reason for Consult Medical management, pancreatitis Primary Care Physician YARELI Agee Diagnoses: History of Present Illness This is a 61-year-old female with history of GERD, osteoporosis, anxiety, hypertension depression presenting to the hospital with abdominal pain, nausea and vomiting. Patient was treated as a case of pancreatitis which resolved after bowel rest. Patient is now admitted to psychiatry unit being treated for major depressive disorder. Presently, patient does not have any nausea, vomiting or diarrhea. She has mild epigastric abdominal pain, nonradiating. Her only complaint is chronic back pain. Patient has any chest pain or shortness of breath. No urinary symptoms like frequency, urgency or incontinence. Review of Systems ROS Limitations: Other (All other pertinent systems were reviewed and are negative.) Past Family Social History Allergies: Coded Allergies: No Known Allergies (Verified , 08/13/16) Past Medical History GERD Osteoporosis Anxiety Depression Hypertension Scoliosis History of pancreatitis Chronic neck pain Past Surgical History Tonsillectomy Reported Medications Lisinopril 10 Mg Tab 10 Mg PO DAILY Propranolol (Propranolol HCl) 20 Mg Tab 20 Mg PO Q12HR Omeprazole 20 Mg Tab 20 Mg PO DAILY Escitalopram (Escitalopram Oxalate) 20 Mg Tab 20 Mg PO DAILY Lortab (Hydrocodone-Acetaminophen) 5-325 Mg Tab 1 Tab PO BID PRN Family History Monitor has hypertension and Alzheimer's Father of liver cancer and alcoholism Grandfather had AR Son has history of alcohol abuse Social History Smokes a few cigarettes a day for several years, no significant alcohol use. Physical Exam Vital Signs Vital Signs Date Time Temp Pulse Resp B/P Pulse Ox O2 Delivery O2 Flow Rate FiO2 08/16/16 06:19 97.5 69 17 158/80 08/15/16 18:00 98.6 69 16 165/84 98 Physical Exam Not in distress, well-nourished, looks stated age PERRL, pink conjunctiva without injection, anicteric Nose without bleeding, airway patent, oropharynx clear Supple neck, no masses or thyromegaly, trachea midline Normal rate and regular rhythm, no murmurs gallops or rubs appreciated. Clear to auscultation and symmetric bilaterally, normal respiratory effort. Normal bowel sounds, soft, mildly distended, mild abdominal tenderness, no guarding. Extremities without clubbing, cyanosis, or edema. No rash of generalized distribution. Skin is warm and dry. AAO x3, no cranial nerve deficits, moves all 4 extremities, no focal neurologic deficits Normal mood, appropriate affect Assessment and Plan Assessment and Plan Mrs. Soto is a 61 year-old female with a past medical history of GERD, osteoporosis, anxiety, depression, and hypertension who initially presented with abdominal pain, presently admitted to psych unit for major depressive disorder. Records of previous hospitalization reviewed including Alcohol induced pancreatitis-resolving, recheck lipase, continue diet. Monitor. Last lipase was 458, triglycerides normal. Records from previous hospitalization reviewed, CT scan reviewed personally, showed calcified splenic granulomas but no pancreatitis. A symptomatic bacteriuria-positive urinalysis, urine culture negative. Initially started on ciprofloxacin but was stopped. Anxiety Depression-further management per psychiatry Hypertension-restart lisinopril, propranolol. Hyponatremia-recheck BMP Hypokalemia-recheck BMP Taking very much for this consult, we will follow along with you. If lab work tomorrow is negative, we will sign off. Florina Dan MD Aug 16, 2016 13:29
[2016-08-16 19:43] VITALS: BP 149/78; PULSE 72; RESP 17; TEMP 98; O2SAT 100
[2016-08-16] MEDS: traZODone HCL 100 MG TAB PO SCH (20:24)
[2016-08-17 05:40] VITALS: BP 157/63; PULSE 66; RESP 16; TEMP 97.9
[2016-08-17] MEDS: PROPRANOLOL HCL 20 MG TAB PO SCH ×2 (08:44→21:16)
[2016-08-17] MEDS: ACETAMINOPHEN/HYDROcodone 325 MG/5 MG TAB PO SCH (08:45)
[2016-08-17] MEDS: LISINOPRIL 10 MG TAB PO SCH (08:45)
[2016-08-17] MEDS: PANTOPRAZOLE SOD 20 MG DELAYED RELEASE TAB PO SCH (08:45)
[2016-08-17] MEDS: clonazePAM 0.5 MG TAB PO SCH ×2 (08:45→21:16)
[2016-08-17] MEDS: DULoxetine HCl DR 60 MG CAP PO SCH (08:45)
[2016-08-17 09:07] LABS: AUTOMATED NEUTROPHIL # 4.7 TH/MM3 (1.8-7.7); BASOPHIL % 0.4 % (0.0-2.0); EOSINOPHIL # 0.1 TH/MM3 (0-0.4); EOSINOPHIL % 1.6 % (0.0-4.0); HEMATOCRIT 42.7 % (35.0-46.0); HEMO FLAGS DIFF FINAL; LYMPH % 29.9 % (9.0-44.0); LYMPHOCYTE # 2.2 TH/MM3 (1.0-4.8); MEAN CELL VOLUME 95.4 FL (80.0-100.0); MEAN CORPUSCULAR HEMOGLOBIN 31.8 PG (27.0-34.0); MEAN CORPUSCULAR HGB CONC 33.4 % (32.0-36.0); MONO % 4.4 % (0.0-8.0); NEUT % 63.7 % (16.0-70.0); PLATELET COUNT 238 TH/MM3 (150-450); RED BLOOD COUNT 4.48 MIL/MM3 (4.00-5.30); RED CELL DISTRIBUTION WIDTH 13.4 % (11.6-17.2); WHITE BLOOD COUNT 7.4 TH/MM3 (4.0-11.0)
[2016-08-17 09:34] LABS: BICARBONATE 29.5 MEQ/L (21.0-32.0); POTASSIUM 3.6 MEQ/L (3.5-5.1)
--- NOTE | 2016-08-17 13:11 | HHI.PR ---
Subjective Remarks Follow-up: Hypertension, Hyponatremia, Hypokalemia and abdominal pain Pancreatitis. Patient seen inpatient psychiatric unit. Reports abdominal pain resolved offers no specific complaints at this time. Patient's blood pressure mildly elevated. Denies headaches or changes in vision. Patient denies chest pain shortness of breath nausea vomiting diarrhea constipation fevers or chills Objective Vitals Vital Signs Date Time Temp Pulse Resp B/P Pulse Ox O2 Delivery O2 Flow Rate FiO2 08/17/16 05:40 97.9 66 16 157/63 08/16/16 19:43 98.0 72 17 149/78 100 Result Diagram: 08/17/16 0837 08/17/16 0834 Objective Remarks Not in distress, well-nourished, looks stated age PERRL, pink conjunctiva without injection, anicteric Nose without bleeding, airway patent, oropharynx clear Supple neck, no masses or thyromegaly, trachea midline Normal rate and regular rhythm, no murmurs gallops or rubs appreciated. Clear to auscultation and symmetric bilaterally, normal respiratory effort. Normal bowel sounds, soft, mildly distended, mild abdominal tenderness, no guarding. Extremities without clubbing, cyanosis, or edema. No rash of generalized distribution. Skin is warm and dry. AAO x3, no cranial nerve deficits, moves all 4 extremities, no focal neurologic deficits Normal mood, appropriate affect A/P Assessment and Plan Mrs. Soto is a 61 year-old female with a past medical history of GERD, osteoporosis, anxiety, depression, and hypertension who initially presented with abdominal pain, presently admitted to psych unit for major depressive disorder. Records of previous hospitalization reviewed including Alcohol induced pancreatitis-resolving, recheck lipase 403, heart healthy diet. Records from previous hospitalization reviewed, CT scan reviewed by Dr. Dan, showed calcified splenic granulomas but no pancreatitis. Patient counseled on alcohol use and encouraged to abstain A symptomatic bacteriuria-positive urinalysis, urine culture negative. Initially started on ciprofloxacin but was stopped. Anxiety Depression-further management per psychiatry Hypertension-blood pressure continues to be mildly elevated Will increase lisinopril to 20 mg daily, continue propranolol. Hyponatremia- improved 139 Hypokalemia- improved 3.6 DVT prophylaxis patient is ambulatory Discussed plan of care with patient and Dr. Dan Patient appears medically stable will sign off if patient's condition changes or further assistance is needed please reconsult Dea Kaiser Aug 17, 2016 13:11
--- NOTE | 2016-08-17 14:02 | HHI.PYPN ---
Subjective Remarks Patient was seen and case discussed with nursing. Patient continues to be followed by the medical team for pancreatitis. Lipase is slightly elevated above baseline. Blood pressures a mildly elevated and we will increase lisinopril to 20 mg. Mood is "tired." Affect is flat. Denies suicidal ideations thought or plan Objective Alert: Yes [place]: Person, Place, Date Mood: Depressed Affect: Blunted Memory Intact: Immediate Hallucinations: Other (denies) Delusions: No Delusion Type: Other (denies) Suicidal: Ideation (vague) Homicidal: Ideation (denies) Insight/Judgement Poor Labs Test 08/17/16 08/17/16 08:34 08:37 Sodium Level 139 MEQ/L Potassium Level 3.6 MEQ/L Chloride Level 99 MEQ/L Carbon Dioxide Level 29.5 MEQ/L Anion Gap 11 MEQ/L Blood Urea Nitrogen 9 MG/DL Creatinine 0.65 MG/DL Estimat Glomerular Filtration 93 ML/MIN Rate Random Glucose 139 MG/DL Calcium Level 8.9 MG/DL Lipase 403 U/L White Blood Count 7.4 TH/MM3 Red Blood Count 4.48 MIL/MM3 Hemoglobin 14.3 GM/DL Hematocrit 42.7 % Mean Corpuscular Volume 95.4 FL Mean Corpuscular Hemoglobin 31.8 PG Mean Corpuscular Hemoglobin 33.4 % Concent Red Cell Distribution Width 13.4 % Platelet Count 238 TH/MM3 Mean Platelet Volume 7.7 FL Neutrophils (%) (Auto) 63.7 % Lymphocytes (%) (Auto) 29.9 % Monocytes (%) (Auto) 4.4 % Eosinophils (%) (Auto) 1.6 % Basophils (%) (Auto) 0.4 % Neutrophils # (Auto) 4.7 TH/MM3 Lymphocytes # (Auto) 2.2 TH/MM3 Monocytes # (Auto) 0.3 TH/MM3 Eosinophils # (Auto) 0.1 TH/MM3 Basophils # (Auto) 0.0 TH/MM3 CBC Comment DIFF FINAL Differential Comment Vitals/IOs Vital Signs Date Time Temp Pulse Resp B/P Pulse Ox O2 Delivery O2 Flow Rate FiO2 08/17/16 05:40 97.9 66 16 157/63 08/16/16 19:43 100 Assessment & Plan Problem List: (1) Major depressive disorder, single episode, severe without psychosis ICD Code: F32.2 Assessment & Plan Lisinopril to 20 mg. Continue medical treatment as indicated Justification for Cont. Inpt. Patient would decompensate in a less restrictive setting Request HC Surrog/Guard Advoc?: No Zackary White DO Aug 17, 2016 14:02
[2016-08-17] MEDS ORDERED: LISI-515 PO (15:36)
[2016-08-17 19:06] VITALS: BP 102/61; PULSE 71; RESP 16; O2SAT 96
[2016-08-17] MEDS: traZODone HCL 100 MG TAB PO SCH (21:16)
[2016-08-17] MEDS: ACETAMINOPHEN 325 MG TAB PO PRN (21:31)
[2016-08-18 05:15] VITALS: BP 135/65; PULSE 71; RESP 16; O2SAT 94
[2016-08-18] MEDS: PROPRANOLOL HCL 20 MG TAB PO SCH ×2 (08:41→20:25)
[2016-08-18] MEDS: ACETAMINOPHEN/HYDROcodone 325 MG/5 MG TAB PO SCH (08:41)
[2016-08-18] MEDS: PANTOPRAZOLE SOD 20 MG DELAYED RELEASE TAB PO SCH (08:41)
[2016-08-18] MEDS: LISINOPRIL 20 MG TAB PO SCH (08:41)
[2016-08-18] MEDS: DULoxetine HCl DR 60 MG CAP PO SCH (08:41)
[2016-08-18] MEDS: clonazePAM 0.5 MG TAB PO SCH ×2 (08:42→20:24)
--- NOTE | 2016-08-18 13:53 | HHI.PYPN ---
Subjective Remarks Patient was seen and case discussed with nursing. Patient is guarded and blunted. He remains concerned about her missing son. Scribes removed today's "a little better." Says she is less tired. Denies suicidal ideations intent or plan. Denies any psychosis. Compliant with medications Objective Alert: Yes [place]: Person, Place, Date Mood: Depressed Affect: Blunted Memory Intact: Immediate Hallucinations: Other (denies) Delusions: No Delusion Type: Other (denies) Suicidal: Ideation (vague) Homicidal: Ideation (denies) Insight/Judgement Poor Vitals/IOs Vital Signs Date Time Temp Pulse Resp B/P Pulse Ox O2 Delivery O2 Flow Rate FiO2 08/18/16 05:15 71 16 135/65 94 08/17/16 05:40 97.9 Assessment & Plan Problem List: (1) Major depressive disorder, single episode, severe without psychosis ICD Code: F32.2 Assessment & Plan Continue current treatment plan Justification for Cont. Inpt. Patient would decompensate in a less restrictive setting Request HC Surrog/Guard Advoc?: No Zackary White DO Aug 18, 2016 13:53
[2016-08-18] MEDS: ACETAMINOPHEN 325 MG TAB PO PRN ×2 (14:21→20:27)
[2016-08-18 18:49] VITALS: BP_SYST 123; BP_SYST 135; BP_DIAS 65; BP_DIAS 69; PULSE 71; PULSE 76; RESP 16; RESP 18; O2SAT 94; O2SAT 97
[2016-08-18] MEDS: traZODone HCL 100 MG TAB PO SCH (20:23)
[2016-08-19 06:19] VITALS: BP 144/79; PULSE 83; RESP 18; TEMP 97.8; O2SAT 97
[2016-08-19] MEDS: PANTOPRAZOLE SOD 20 MG DELAYED RELEASE TAB PO SCH (08:41)
[2016-08-19] MEDS: PROPRANOLOL HCL 20 MG TAB PO SCH (08:41)
[2016-08-19] MEDS: LISINOPRIL 20 MG TAB PO SCH (08:41)
[2016-08-19] MEDS: DULoxetine HCl DR 60 MG CAP PO SCH (08:41)
[2016-08-19] MEDS: clonazePAM 0.5 MG TAB PO SCH (08:41)
[2016-08-19] MEDS: ACETAMINOPHEN/HYDROcodone 325 MG/5 MG TAB PO SCH (08:41)
[2016-08-19] MEDS ORDERED: TRAZ50TA12 PO (11:04)
[2016-08-19] MEDS ORDERED: PROP20TA3 PO (11:04)
[2016-08-19] MEDS ORDERED: DULO1CAP3 PO (11:04)
[2016-08-19] MEDS ORDERED: CLON.5 PO (11:04)
--- NOTE | 2016-08-19 11:13 | HHI.DS ---
Psychiatry Discharge Summary Inpatient Psychiatric care?: Yes Advance Directive: No Reason Not Provided: DOES NOT HAVE Mental Health AdvanceDirective: No Health Care Proxy: No Admission Admission Date Aug 15, 2016 at 18:24 Admission Diagnosis: (1) Major depressive disorder, single episode, severe without psychosis ICD Code: F32.2 Brief History This is a 61-year-old white female who was hospitalized on the medical floor because of feeling anxious depressed. She claimed that she has lost some weight. She has been having some difficulty sleeping she believes that the her medication Lexapro doesn't seem to be helping. He also complains of chronic low back pain she also was worried about finances but now she got her Social Security and feels little bit better. Patient claimed that she has frequent thoughts of wanting to end her life but no plan to kill herself. She is worried about her son who is an alcoholic and missing for the past 13 or 14 days. Patient denied any delusion paranoia aggressive behavior or confusion. This has been going on for the past 1 year. And her family practitioner is prescribing antidepressant that doesn't seem to be helping at that point she was transferred to the psychiatric floor for help. Tobacco Use In Past 30 Days: 4 or Less Cigarettes/Day Alcohol Use: Monthly or Less Hospital Course Patient was seen and case discussed with nursing. Patient was initially admitted for increasing depression and and suicidal ideation with no plan. There is a major stressor of her son's disappearance. Over the past couple of days patient has been gradually improving. Today she is bright and cheerful during the interview. She denies depressed mood. Her affect is euthymic. She is hopeful towards the future remains concerned about her missing son. Patient says she has a good support system including her and several friends plan to stay with her at home. She is being discharged on Klonopin but we are reducing the dose to once a day and psychoeducation was done about controlled substances. Patient was asked to follow-up with an outpatient psychiatric appointment were hopefully her Klonopin will continue to be tapered. Patient denies suicidal ideations plan or intent. Patient is tolerating her medications well. Patient made aware that if any suicidal thoughts recur to follow-up with outpatient psychiatrist or call 911 Results Blood Pressure 144 / 79 Vital Signs Date Time Temp Pulse Resp B/P Pulse Ox O2 Delivery O2 Flow Rate FiO2 08/19/16 06:19 97.8 83 18 144/79 97 Laboratory Tests Test 08/17/16 08:34 Random Glucose 139 MG/DL (74-106) Lipase 403 U/L (73-393) Summary of Procedures No procedures in psychiatry Pending results at discharge: No Medications # of Antipsychotic meds at D/C: 0 Approp Antipsych med options 1 - Minimum of three failed multiple trials of monotherapy. 2 - Documented plan to taper to monotherapy due to previous use of multiple meds OR cross-taper in progress at D/C. 3 - Documentation of augmentation of Clozapine. 4 - Justification other than those listed in allowable values 1-3, document here : Discharge Discharge Date: Aug 19, 2016 Discharge Diagnosis: (1) Major depressive disorder, single episode, severe without psychosis Diagnosis: Principal ICD Code: F32.2 Mental Status Exam at Disch Patient is alert and oriented 4. Pleasant and cooperative with exam. No abnormal movements. Speech is normal rate and tone. Mood is "better." Affect is euthymic. Thought process is logical and coherent. Thought content includes no auditory visual hallucinations. No delusions. Insight and judgment is good Pt Condition on Discharge: Good Discharge Disposition: Discharge Home Discharge Instructions Diet Instructions: As Tolerated, No Restrictions Activities you can perform: Regular-No Restrictions Scheduled Appointment: [facility] (please schedule appointment, nursing made aware) Discharge Time > 30 minutes Discharge/Advance Care Plan Health Problems: (1) Major depressive disorder, single episode, severe without psychosis Goals to promote your health * To prevent worsening of your condition and complications * To maintain your health at the optimal level Directions to meet your goals Take your medications as prescribed Follow your dietary instruction Follow activity as directed Keep your appointments as scheduled Take your immunizations and boosters as scheduled If your symptoms worsen call your PCP, if no PCP go to Urgent Care Center or Emergency Room For 24/02 questions related to your inpatient stay or results of tests pending at discharge, please contact Dr. Zackary White at Smoking is Dangerous to Your Health. Avoid second hand smoking Zackary White DO Aug 19, 2016 11:13
[2016-09-19] MEDS ORDERED: DULO1CAP3 PO (15:34)
[2016-11-12] MEDS ORDERED: CHLOR50 PO (10:06)
[2016-11-12] MEDS ORDERED: MELO7.5T4 PO ×2 (10:06→10:18)
[2016-11-12] MEDS ORDERED: LURA20TA PO (10:06)
[2016-11-12] MEDS ORDERED: CYMB30CA PO (10:06)
[2016-11-12] MEDS ORDERED: LISI-515 PO (10:19)
[2016-11-12] MEDS ORDERED: METH125I2 IM (10:24)
== END 2016-08-19 16:25 | disposition home or self-care (01) | DRG 885 ==
LOC: H260 18:24
PROVIDERS: ADMIT Psychiatry & Neurology Psychiatry; ATTEND Psychiatry & Neurology Psychiatry
DX: F32.2 Major depressive disorder, single episode, severe without psychotic features (principal); K85.90 Acute pancreatitis without necrosis or infection, unspecified; E87.1 Hypo-osmolality and hyponatremia; Z68.1 Body mass index [BMI] 19.9 or less, adult; M41.9 Scoliosis, unspecified; I10 Essential (primary) hypertension; B19.20 Unspecified viral hepatitis C without hepatic coma; G89.29 Other chronic pain; M54.5 Low back pain; R63.4 Abnormal weight loss; G47.9 Sleep disorder, unspecified; K21.9 Gastro-esophageal reflux disease without esophagitis; M81.0 Age-related osteoporosis without current pathological fracture; M54.2 Cervicalgia; E87.6 Hypokalemia; F17.210 Nicotine dependence, cigarettes, uncomplicated; Z62.810 Personal history of physical and sexual abuse in childhood; Z81.1 Family history of alcohol abuse and dependence; Z81.8 Family history of other mental and behavioral disorders
CPT/HCPCS: 80048; 83690; 85025

== ENCOUNTER → 2016-11-07 | Outpatient (CLI) | payer OTHER ==
[~2016-11-07] MED LIST changes: +CHLOR50 PO; +CLON.5 PO; +CYMB30CA PO; +DULO1CAP3 PO; -ESCI20TA PO; +LISI-515 PO; -LISI10TA3 PO; +LURA20TA PO; +MELO7.5T4 PO; +METH125I2 IM; +NAPR1TAB98 PO; +TRAZ50TA12 PO
[2016-11-07 10:55] LABS: HEMATOCRIT 42.6 % (35.0-46.0); MEAN CELL VOLUME 93.7 FL (80.0-100.0); MEAN CORPUSCULAR HEMOGLOBIN 31.7 PG (27.0-34.0); MEAN CORPUSCULAR HGB CONC 33.8 % (32.0-36.0); PLATELET COUNT 197 TH/MM3 (150-450); RED BLOOD COUNT 4.55 MIL/MM3 (4.00-5.30); RED CELL DISTRIBUTION WIDTH 14.1 % (11.6-17.2); REVIEW FLAG FINAL; WHITE BLOOD COUNT 9.5 TH/MM3 (4.0-11.0)
[2016-11-07 11:21] LABS: ALKALINE PHOSPHATASE 92 U/L (45-117); ALT (GPT) 35 U/L (10-53); ANION GAP 7 MEQ/L (5-15); AST (GOT) 35 U/L (15-37); BICARBONATE 29.2 MEQ/L (21.0-32.0); BLOOD UREA NITROGEN 8 MG/DL (7-18); CHLORIDE 101 MEQ/L (98-107); GLOMERULAR FILTRATION RATE 72 ML/MIN (>89); GLUCOSE,FASTING 109 MG/DL (74-99); HDL CHOLESTEROL 70.4 MG/DL (40.0-60.0); LDL CHOLESTEROL 43 MG/DL (0-99); SODIUM (NA) 137 MEQ/L (136-145); TOTAL BILIRUBIN ADULT 0.4 MG/DL (0.2-1.0)
== END ==
LOC: CLAB 10:27
PROVIDERS: ATTEND Physician Assistant Medical
DX: F41.9 Anxiety disorder, unspecified (principal); I10 Essential (primary) hypertension; M41.9 Scoliosis, unspecified; B18.2 Chronic viral hepatitis C
CPT/HCPCS: 36415; 80053; 80061; 84443; 85027

== ENCOUNTER 2016-12-24 12:21 | Emergency (ER) | payer OTHER ==
[~2016-12-24] VITALS: Ht 162.6 cm; Wt 40.0 kg
[~2016-12-24 12:21] MED LIST changes: -DULO1CAP3 PO; -METH125I2 IM; -NAPR1TAB98 PO
[2016-12-24 12:25] VITALS: BP 190/90; PULSE 79; RESP 15; TEMP 98.2; O2SAT 98
[2016-12-24 14:10] VITALS: BP 195/93; PULSE 88; RESP 20; O2SAT 99
[2016-12-24] MEDS ORDERED: NAPR1TAB98 PO (14:19)
--- NOTE | 2016-12-24 14:26 | PD ---
HPI Chief Complaint: Hypertension Time Seen by Provider: 14:17 Travel History International Travel<30 days: No Contact w/Intl Traveler<30days: No Traveled to known affect area: No History of Present Illness HPI 61-year-old female presents to the emergency department for evaluation of generalized fatigue as well as hypertension. She states her blood pressures been elevated for the past 5 days in the 180s to 190s systolic. She states that she is currently transitioning her primary care physician and is out of her lisinopril, propranolol, trazodone. She states that she ran out of her propranolol approximately 2 days ago. She has been taking her 's lisinopril and took one this morning. She states that she has some left neck pain that radiates to the head, but denies any headache. Patient denies any chest pain or shortness breath. No abdominal pain. No nausea, vomiting, diarrhea. Patient states she feels anxious. PFSH Past Medical History Anxiety: Yes Depression: Yes Heart Rhythm Problems: No Cancer: No Cardiac Catheterization: No Cardiovascular Problems: Yes (HTN) High Cholesterol: No Chest Pain: Yes Congestive Heart Failure: No Diabetes: No Diminished Hearing: No Endocrine: No GERD: Yes Genitourinary: No Heparin Induced Thrombocytopen: No Hypertension: Yes Immune Disorder: No Musculoskeletal: Yes (SCOLIOSIS) Neurologic: No Psychiatric: Yes Reproductive: No Respiratory: No ?: Not Menopausal: Yes Past Surgical History Abdominal Surgery: No Cardiac Surgery: No Coronary Artery Bypass Graft: No Ear Surgery: No Endocrine Surgery: No Eye Surgery: No Genitourinary Surgery: No Gynecologic Surgery: No Oral Surgery: No Thoracic Surgery: No Tonsillectomy: Yes Social History Alcohol Use: Yes (occ) Tobacco Use: Yes (1/3 a pack a day ) Substance Use: No Allergies-Medications (Allergen,Severity, Reaction): Coded Allergies: No Known Allergies (Verified , 12/24/16) Reported Meds & Prescriptions Reported Meds & Active Scripts Active Lisinopril 20 Mg Tab 20 Mg PO DAILY Meloxicam 7.5 Mg Tab 7.5 Mg PO BID Trazodone (Trazodone HCl) 50 Mg Tab 100 Mg PO HS PRN 30 Days Propranolol (Propranolol HCl) 20 Mg Tab 20 Mg PO BID 30 Days Klonopin (Clonazepam) 0.5 Mg Tab 0.5 Mg PO DAILY 30 Days Omeprazole 20 Mg Tab 20 Mg PO DAILY Reported Aleve PM (Naproxen Sodium-Diphenhydramine) 220-25 Mg Tab 1 Tab PO HS PRN Cymbalta DR (Duloxetine HCl) 30 Mg Capdr 30 Mg PO BID Latuda (Lurasidone) 20 Mg Tab 20 Mg PO DAILY Lortab (Hydrocodone-Acetaminophen) 5-325 Mg Tab 1 Tab PO BID PRN Review of Systems Except as stated in HPI: all other systems reviewed are Neg Physical Exam Narrative GENERAL: Well-nourished, well-developed female patient, ambulatory. Afebrile. SKIN: Focused skin assessment warm/dry. HEAD: Normocephalic. Atraumatic. EYES: No scleral icterus. No injection or drainage. NECK: Supple, trachea midline. No JVD or lymphadenopathy. CARDIOVASCULAR: Regular rate and rhythm without murmurs, gallops, or rubs. Bilateral radial and pedal pulses 2+. RESPIRATORY: Breath sounds equal bilaterally. No accessory muscle use. Lungs sounds are clear to auscultation. GASTROINTESTINAL: Abdomen soft, non-tender, nondistended. MUSCULOSKELETAL: No cyanosis, or edema. BACK: Nontender without obvious deformity. No CVA tenderness. Data Data Last Documented VS Vital Signs Date Time Temp Pulse Resp B/P Pulse Ox O2 Delivery O2 Flow Rate FiO2 12/24/16 14:46 84 167/94 98 Room Air 12/24/16 14:10 20 12/24/16 12:25 98.2 Orders Propranolol (Inderal) (12/24/16 14:30) Electrocardiogram (12/24/16 14:16) Basic Metabolic Panel (Bmp) (12/24/16 14:16) Ckmb (Isoenzyme) Profile (12/24/16 14:16) Complete Blood Count With Diff (12/24/16 14:16) Magnesium (Mg) (12/24/16 14:16) Troponin I (12/24/16 14:16) Ecg Monitoring (12/24/16 14:16) Iv Access Insert/Monitor (12/24/16 14:16) Sodium Chloride 0.9% Flush (Ns Flush) (12/24/16 14:30) Ns (Bolus) Inj (12/24/16 16:15) Labs Laboratory Tests Test 12/24/16 14:45 White Blood Count 10.2 TH/MM3 Red Blood Count 4.50 MIL/MM3 Hemoglobin 14.1 GM/DL Hematocrit 42.2 % Mean Corpuscular Volume 93.7 FL Mean Corpuscular Hemoglobin 31.3 PG Mean Corpuscular Hemoglobin 33.4 % Concent Red Cell Distribution Width 14.5 % Platelet Count 230 TH/MM3 Mean Platelet Volume 7.4 FL Neutrophils (%) (Auto) 65.6 % Lymphocytes (%) (Auto) 24.9 % Monocytes (%) (Auto) 7.8 % Eosinophils (%) (Auto) 0.6 % Basophils (%) (Auto) 1.1 % Neutrophils # (Auto) 6.7 TH/MM3 Lymphocytes # (Auto) 2.5 TH/MM3 Monocytes # (Auto) 0.8 TH/MM3 Eosinophils # (Auto) 0.1 TH/MM3 Basophils # (Auto) 0.1 TH/MM3 CBC Comment DIFF FINAL Differential Comment Sodium Level 130 MEQ/L Potassium Level 4.0 MEQ/L Chloride Level 93 MEQ/L Carbon Dioxide Level 29.0 MEQ/L Anion Gap 8 MEQ/L Blood Urea Nitrogen 7 MG/DL Creatinine 0.62 MG/DL Estimat Glomerular Filtration 98 ML/MIN Rate Random Glucose 86 MG/DL Calcium Level 9.0 MG/DL Magnesium Level 2.2 MG/DL Total Creatine Kinase 74 U/L Troponin I LESS THAN 0.02 NG/ML MDM Medical Decision Making Medical Screen Exam Complete: Yes Emergency Medical Condition: Yes Medical Record Reviewed: Yes Differential Diagnosis Medication refill versus hypertension versus electrolyte abnormality Narrative Course 61-year-old female presents to the emergency department requesting sitting her blood pressure has been running high for 5 days, but is also out of her lisinopril and propranolol. She states she took her 's lisinopril this morning. Patient is given her propanolol the emergency department. EKG, CBC, BMP, CK, troponin and magnesium are ordered and pending. Patient appears well on exam. EKG shows sinus rhythm, heart rate 85, no acute ST changes. CBC is unremarkable. BMP shows sodium 130. CK is 74. Troponin is less than 0.02. Magnesium is 2.2. Patient is given normal saline 500 mL bolus. Patient will be discharged prescription for lisinopril and propranolol. She is to follow-up with her primary care physician. She verbalizes agreement and understanding. I discussed the case with my attending physician, Dr. Ruth, who agrees with plan and disposition. The patient was discharged in stable condition with instructions, including return instructions and follow up instructions. Diagnosis Primary Impression: Hypertension Qualified Code: I10 - Essential hypertension Additional Impression: Medication refill Referrals: Primary Care Physician 2 days Patient Instructions: Chronic Hypertension (ED), General Instructions, Medication Refill, ED Additional Instructions: Follow up with your primary care physician. Return to the emergency department for any acute, worsening of symptoms. Med/Other Pt SpecificInfo: Prescription(s) given Scripts Lisinopril 20 Mg Tab20 Mg PO DAILY #30 TAB Ref 0 Prov:Rachel Dunn 12/24/16 Propranolol 20 Mg Tab20 Mg PO BID 30 Days Ref 0 Prov:Rachel Dunn 12/24/16 Disposition: 01 DISCHARGE HOME Condition: Stable Rachel Dunn December 24, 2016 14:26
[2016-12-24] MEDS ORDERED: SODIUM CHLORIDE 0.9% FLUSH 10 ML FLUSH IVF PRN (14:30)
[2016-12-24] MEDS ORDERED: PROPRANOLOL HCL 20 MG TAB PO ONE (14:30)
[2016-12-24 14:46] VITALS: BP 167/94; PULSE 84; O2SAT 98
[2016-12-24 15:13] LABS: AUTOMATED NEUTROPHIL # 6.7 TH/MM3 (1.8-7.7); BASOPHIL # 0.1 TH/MM3 (0-0.2); BASOPHIL % 1.1 % (0.0-2.0); EOSINOPHIL # 0.1 TH/MM3 (0-0.4); EOSINOPHIL % 0.6 % (0.0-4.0); HEMATOCRIT 42.2 % (35.0-46.0); HEMO FLAGS DIFF FINAL; LYMPH % 24.9 % (9.0-44.0); LYMPHOCYTE # 2.5 TH/MM3 (1.0-4.8); MEAN CELL VOLUME 93.7 FL (80.0-100.0); MEAN CORPUSCULAR HEMOGLOBIN 31.3 PG (27.0-34.0); MEAN CORPUSCULAR HGB CONC 33.4 % (32.0-36.0); MONO % 7.8 % (0.0-8.0); NEUT % 65.6 % (16.0-70.0); PLATELET COUNT 230 TH/MM3 (150-450); RED CELL DISTRIBUTION WIDTH 14.5 % (11.6-17.2); WHITE BLOOD COUNT 10.2 TH/MM3 (4.0-11.0)
[2016-12-24 15:26] LABS: ANION GAP 8 MEQ/L (5-15); BLOOD UREA NITROGEN 7 MG/DL (7-18); CHLORIDE 93 MEQ/L (98-107); GLOMERULAR FILTRATION RATE 98 ML/MIN (>89); MAGNESIUM 2.2 MG/DL (1.5-2.5); SODIUM (NA) 130 MEQ/L (136-145)
[2016-12-24 15:42] LABS: CREATINE KINASE 74 U/L (26-192)
[2016-12-24] MEDS ORDERED: PROP20TA3 PO (16:05)
[2016-12-24] MEDS ORDERED: LISI-515 PO (16:05)
[2016-12-24] MEDS ORDERED: SODIUM CHLORID 0.9% 500 ML INJ 500 ML IV ONE (16:15)
[2016-12-24] MEDS: SODIUM CHLOR 0.9% 1000 ML INJ 1,000 ML IV ONE ×2 (16:15→16:31)
--- NOTE | 2016-12-24 19:55 | EKG ---
Date Performed: 12/24/2016 Time Performed: 15:02:31 PTAGE: 61 years EKG: Sinus rhythm WITH SHORT OK INTERVAL BORDERLINE ECG PREVIOUS TRACING : 06/17/2016 17.38 Compared to prior tracing no significant change DOCTOR: Lesley Spencer Interpretating Date/Time 12/24/2016 19:53:51
== END 2016-12-24 17:59 | disposition home or self-care (01) ==
LOC: NEPC 12:21
DX: I10 Essential (primary) hypertension (principal); R53.83 Other fatigue; M54.2 Cervicalgia; R94.31 Abnormal electrocardiogram [ECG] [EKG]; F17.200 Nicotine dependence, unspecified, uncomplicated; Z76.0 Encounter for issue of repeat prescription; Z86.59 Personal history of other mental and behavioral disorders; Z86.79 Personal history of other diseases of the circulatory system; Z87.19 Personal history of other diseases of the digestive system; Z87.39 Personal history of other diseases of the musculoskeletal system and connective tissue
CPT/HCPCS: 80048; 82550; 83735; 84484; 85025; 93005; 99284; J7030

== ENCOUNTER 2017-06-27 17:50 | Observation (INO) | payer BC ==
[2017-06-27] VITALS (11 sets, daily range): BP systolic 146–197; BP diastolic 75–111; PULSE 92–114; RESP 16–20; TEMP 98.4; O2SAT 94–98
[~2017-06-27] VITALS: Ht 160 cm; Wt 45.0 kg
[~2017-06-27 17:50] MED LIST changes: -CHLOR50 PO; +MELO7.5T27 PO; -MELO7.5T4 PO; +NAPR1TAB98 PO; -OMEP20TA PO; +OMEP20TA93 PO
--- NOTE | 2017-06-27 18:22 | PD ---
HPI Chief Complaint: Head Injury Time Seen by Provider: 18:10 Travel History International Travel<30 days: No Contact w/Intl Traveler<30days: No Traveled to known affect area: No History of Present Illness HPI 62-year-old female presents to the emergency Department with complaint of continued right-sided frontal headache 1 week after falling a week ago on Friday and hitting the right side of her head. She tripped over a cement step. Denies loss of consciousness. Denies neck pain or back pain. Reports bruising to her right eye that developed the next day. Denies vomiting. Reports busyness. Headache is stool. Rates pain 6/10. Reports lack of concentration, insomnia and difficulty concentrating. Denies change in vision. She went to her primary care provider, Dr. James, and she was given an order for a CT scan on Friday which she has not done. She is also complaining of chest pain that started last night. Associated to an anxiety attack. She took buspirone for symptom management. Chest pain is intermittent. Described as a pressure and something is sitting on her chest. Denies shortness of breath. Chest pain is left-sided. Denies chest pain at this time. Reports tobacco use. Denies family history of cardiac events. Took hydrocodone at noon for pain. No known relieving or aggravating factors. History of osteoporosis, anemia. Has no other medical complaints. No other modifying factors or associated signs and symptoms. PFSH Past Medical History Asthma: Yes Anxiety: Yes Depression: Yes Heart Rhythm Problems: No Cancer: No Cardiac Catheterization: No Cardiovascular Problems: Yes (HTN) High Cholesterol: Yes Chest Pain: Yes Congestive Heart Failure: No Diabetes: No Diminished Hearing: No Endocrine: No Gastrointestinal Disorders: Yes (PANCREATITIS) GERD: Yes Genitourinary: No Heparin Induced Thrombocytopen: No Hypertension: Yes Immune Disorder: No Musculoskeletal: Yes (SCOLIOSIS) Neurologic: Yes Psychiatric: Yes Reproductive: No Respiratory: Yes Migraines: Yes ?: Not Menopausal: Yes Past Surgical History Abdominal Surgery: No Cardiac Surgery: No Coronary Artery Bypass Graft: No Ear Surgery: No Endocrine Surgery: No Eye Surgery: No Genitourinary Surgery: No Gynecologic Surgery: No Neurologic Surgery: No Oral Surgery: No Thoracic Surgery: No Tonsillectomy: Yes Other Surgery: Yes (TONSILLECTOMY) Social History Alcohol Use: Yes (occ) Tobacco Use: Yes (1/3 a pack a day ) Substance Use: No Allergies-Medications (Allergen,Severity, Reaction): Coded Allergies: No Known Allergies (Verified , 12/24/16) Reported Meds & Prescriptions Reported Meds & Active Scripts Active Propranolol (Propranolol HCl) 20 Mg Tab 20 Mg PO BID 30 Days Omeprazole 20 Mg Tab 20 Mg PO DAILY Reported Tizanidine (Tizanidine HCl) 4 Mg Tab 4 Mg PO TID Remeron (Mirtazapine) 15 Mg Tab 15 Mg PO HS [place] (Hydrocodone-Acetaminophen) 10-325 Mg Tab 1 Tab PO Q4H PRN Lexapro (Escitalopram Oxalate) 10 Mg Tab 10 Mg PO DAILY Buspirone (Buspirone HCl) 10 Mg Tab 10 Mg PO DAILY PRN Amitriptyline (Amitriptyline HCl) 25 Mg Tab 25 Mg PO HS Review of Systems Except as stated in HPI: all other systems reviewed are Neg Physical Exam Narrative GENERAL: Thin, female patient, in no acute distress SKIN: Warm and dry. HEAD: Atraumatic. Normocephalic. Right forehead/scalp with small healing hematoma with stage IV ecchymosis. No facial droop noted. Tongue Midline. EYES: Pupils equal and round at 3 mm with brisk reaction. No scleral icterus. No injection or drainage. Right raccoon eyes. Right orbital tenderness on palpation bilaterally. EOMI. PERRLA. ENT: Mucosa pink and moist. No erythema or exudates. No uvular edema. No uvular , palatal, or tonsillar deviation. Airway patent. Nares without nasal blood, purulent drainage or septal hematoma. No rhinorrhea. EARS: Bilateral pinnae and external canals appear within normal limits. Bilateral tympanic membranes without erythema, dullness, hemotympanum or perforation. No otorrhea. No desai signs. NECK: Moving freely. Trachea midline. No lymphadenopathy. No obvious deformities. CHEST: No retractions or use of accessory muscles. CARDIOVASCULAR: Regular rate and rhythm. No murmur appreciated. RESPIRATORY: No accessory muscle use. Clear to auscultation. Breath sounds equal bilaterally. GASTROINTESTINAL: Abdomen soft, non-tender, nondistended. Hepatic and splenic margins not palpable. Bowel sounds are active 4 quadrants. MUSCULOSKELETAL: No obvious deformities. No clubbing. No cyanosis. No edema. BACK: No obvious deformities. Patient sitting up in bed at 90. NEUROLOGICAL: Awake and alert. Oriented 3. No obvious cranial nerve deficits. Motor grossly within normal limits. Normal speech. No midline drift. No ataxia. Moves all extremities. 5/5 strength to all extremities. Sensory intact. PSYCHIATRIC: Appropriate mood and affect; insight and judgment normal. Data Data Last Documented VS Vital Signs Date Time Temp Pulse Resp B/P (MAP) Pulse Ox O2 Delivery O2 Flow Rate FiO2 06/27/17 18:37 16 06/27/17 18:25 98 Room Air 06/27/17 18:25 06/27/17 18:25 78 06/27/17 17:[address] Brain W/O Iv Contrast(Rout) (06/27/17 ) Ct Facial Bones W/O Iv Cont (06/27/17 ) Electrocardiogram (06/27/17 18:22) Basic Metabolic Panel (Bmp) (06/27/17 18:22) Ckmb (Isoenzyme) Profile (06/27/17 18:22) Complete Blood Count With Diff (06/27/17 18:22) Magnesium (Mg) (06/27/17 18:22) Prothrombin Time / Inr (Pt) (06/27/17 18:22) Act Partial Throm Time (Ptt) (06/27/17 18:22) Troponin I (06/27/17 18:22) Chest, Single Ap (06/27/17 18:22) Ecg Monitoring (06/27/17 18:22) Iv Access Insert/Monitor (06/27/17 18:22) Oximetry (06/27/17 18:22) Oxygen Administration (06/27/17 18:22) Sodium Chloride 0.9% Flush (Ns Flush) (06/27/17 18:30) Morphine Inj (Morphine Inj) (06/27/17 18:30) Ondansetron Inj (Zofran Inj) (06/27/17 18:30) Labs Laboratory Tests Test 06/27/17 18:00 06/27/17 20:05 White Blood Count 11.3 TH/MM3 Red Blood Count 4.56 MIL/MM3 Hemoglobin 13.9 GM/DL Hematocrit 41.2 % Mean Corpuscular Volume 90.3 FL Mean Corpuscular Hemoglobin 30.5 PG Mean Corpuscular Hemoglobin Concent 33.8 % Red Cell Distribution Width 17.5 % Platelet Count 247 TH/MM3 Mean Platelet Volume 7.6 FL Neutrophils (%) (Auto) 69.0 % Lymphocytes (%) (Auto) 22.0 % Monocytes (%) (Auto) 7.4 % Eosinophils (%) (Auto) 1.1 % Basophils (%) (Auto) 0.5 % Neutrophils # (Auto) 7.8 TH/MM3 Lymphocytes # (Auto) 2.5 TH/MM3 Monocytes # (Auto) 0.8 TH/MM3 Eosinophils # (Auto) 0.1 TH/MM3 Basophils # (Auto) 0.1 TH/MM3 CBC Comment AUTO DIFF Differential Comment AUTO DIFF CONFIRMED Platelet Estimate NORMAL Platelet Morphology Comment NORMAL Prothrombin Time 10.3 SEC Prothromb Time International Ratio 0.9 RATIO Activated Partial Thromboplast Time 26.9 SEC Blood Urea Nitrogen 8 MG/DL Creatinine 0.46 MG/DL Random Glucose 87 MG/DL Calcium Level 8.3 MG/DL Magnesium Level 2.0 MG/DL Sodium Level 140 MEQ/L Potassium Level 3.6 MEQ/L Chloride Level 107 MEQ/L Carbon Dioxide Level 27.5 MEQ/L Anion Gap 6 MEQ/L Estimat Glomerular Filtration Rate 138 ML/MIN Total Creatine Kinase 45 U/L Troponin I LESS THAN 0.02 NG/ML MDM Medical Decision Making Medical Screen Exam Complete: Yes Emergency Medical Condition: Yes Medical Record Reviewed: Yes Differential Diagnosis Closed head injury, TBI, concussion, orbital fracture, facial contusion, atypical chest pain, ID, ACS Narrative Course 62-year-old female with closed head injury and chest pain. Chest pain protocol ordered. CT head and facial bones ordered. I discussed the patient with Dr. Laughlin, my attending physician, and he agrees with my plan of care. 1828: EKG with normal sinus rhythm; reviewed by Dr. Laughlin. 1928: CBC unremarkable. Coags unremarkable. Chest x-ray, head CT, maxillofacial CT concludes: Chest X-Ray 06/27/171821 Signed Impressions: Service Date/Time: Tuesday, June 27, 2017 18:49 - CONCLUSION: The lungs are clear. Mukesh Catherine MD Maxillofacial CT 06/27/17 0000 Signed Impressions: Service Date/Time: Tuesday, June 27, 2017 18:33 - CONCLUSION: No facial bone fracture seen. Mukesh Catherine MD Head CT 06/27/17 0000 Signed Impressions: Service Date/Time: Tuesday, June 27, 2017 18:30 - CONCLUSION: No acute disease. Mukesh Winn Jr., MD X-ray and CT findings discussed with the patient. 2138: BMP unremarkable. Total CK 45. Troponin less than 0.02. Patient will be admitted to the chest pain center for further treatment and evaluation. Physician Communication Physician Communication DIRECTOR OF MATERIALS MANAGEMENT Diagnosis Primary Impression: Chest pain Qualified Codes: R07.9 - Chest pain, unspecified Additional Impressions: Closed head injury Qualified Codes: S09.90XA - Unspecified injury of head, initial encounter Facial contusion Qualified Codes: S00.83XA - Contusion of other part of head, initial encounter Admitting Information Admitting Physician Requests: Observation Roseanne Obando [facility] Jun 27, 2017 18:22
[2017-06-27] MEDS ORDERED: ONDANSETRON HCL 4 MG/2 ML VIAL IV PUSH ONE (18:30)
[2017-06-27] MEDS ORDERED: MORPHINE SULFATE 2 MG/ML INJ IM ONE (18:30)
[2017-06-27] MEDS: SODIUM CHLORIDE 0.9% FLUSH 10 ML FLUSH IVF PRN (18:32)
[2017-06-27] MEDS ORDERED: TIZA4TAB PO (18:43)
[2017-06-27] MEDS ORDERED: REME15TA PO (18:43)
[2017-06-27] MEDS ORDERED: HYDR-3366 PO (18:43)
[2017-06-27] MEDS ORDERED: AMIT25TA9 PO (18:43)
[2017-06-27] MEDS ORDERED: BUSP10TA PO (18:43)
[2017-06-27] MEDS ORDERED: LEXA10TA PO (18:43)
--- NOTE | 2017-06-27 18:46 | RADRPT ---
EXAM DATE/TIME: 06/27/2017 18:30 [facility] COMPARISON: No previous studies available for comparison. INDICATIONS : Trauma, patient fell one week ago; complains of dizziness and headache. RADIATION DOSE: 45.79 CTDIvol (mGy) MEDICAL HISTORY : Cardiovascular disease. Hypertension. Pancreatitis. SURGICAL HISTORY : None. ENCOUNTER: Initial ACUITY: 1 week PAIN SCALE: 6/10 LOCATION: cranial TECHNIQUE: Multiple contiguous axial images were obtained of the head. Using automated exposure control and adj ustment of the mA and/or kV according to patient size, radiation dose was kept as low as reasonably a chievable to obtain optimal diagnostic quality images. DICOM format image data is available electro nically for review and comparison. FINDINGS: CEREBRUM: The ventricles are normal for age. No evidence of midline shift, mass lesion, hemorrhage or acute in farction. No extra-axial fluid collections are seen. POSTERIOR FOSSA: The cerebellum and brainstem are intact. The 4th ventricle is midline. The cerebellopontine angle i s unremarkable. EXTRACRANIAL: The visualized portion of the orbits is intact. SKULL: The calvaria is intact. No evidence of skull fracture. CONCLUSION: No acute disease. Mukesh Winn Jr., MD on June 27, 2017 at 18:44 Board Certified Radiologist. This report was verified electronically.
[2017-06-27 18:56] LABS: AUTOMATED NEUTROPHIL # 7.8 TH/MM3 (1.8-7.7); BASOPHIL # 0.1 TH/MM3 (0-0.2); BASOPHIL % 0.5 % (0.0-2.0); EOSINOPHIL # 0.1 TH/MM3 (0-0.4); EOSINOPHIL % 1.1 % (0.0-4.0); HEMATOCRIT 41.2 % (35.0-46.0); LYMPHOCYTE # 2.5 TH/MM3 (1.0-4.8); MEAN CELL VOLUME 90.3 FL (80.0-100.0); MEAN CORPUSCULAR HEMOGLOBIN 30.5 PG (27.0-34.0); MEAN CORPUSCULAR HGB CONC 33.8 % (32.0-36.0); MONO % 7.4 % (0.0-8.0); PLATELET COUNT 247 TH/MM3 (150-450); RED BLOOD COUNT 4.56 MIL/MM3 (4.00-5.30); RED CELL DISTRIBUTION WIDTH 17.5 % (11.6-17.2); WHITE BLOOD COUNT 11.3 TH/MM3 (4.0-11.0)
--- NOTE | 2017-06-27 18:56 | RADRPT ---
EXAM DATE/TIME: 06/27/2017 18:33 [facility] COMPARISON: CT BRAIN W/O CONTRAST, June 27, 2017, 18:30. INDICATIONS : Trauma; patient fell one week ago. Periorbital bruising. RADIATION DOSE: 36.81 CTDIvol (mGy) MEDICAL HISTORY : Cardiovascular disease. Hypertension. Pancreatitis. SURGICAL HISTORY : None. ENCOUNTER: Initial ACUITY: 1 week PAIN SCORE: 6/10 LOCATION: facial TECHNIQUE: Volumetric scanning of the facial bones was performed. Using automated exposure control and adjustme nt of the mA and/or kV according to patient size, radiation dose was kept as low as reasonably achiev able to obtain optimal diagnostic quality images. DICOM format image data is available electronicall y for review and comparison. FINDINGS: CT of the facial bones demonstrates no fracture of the orbital rim, zygomatic arches, nasal bone, axi lla, or mandible. There is prominent pneumatization of the right middle turbinate causing nasal sept al deviation towards the left. The paranasal sinuses are clear. The retroconal structures in both o rbits have a normal configuration. There is a 1.5 x 0.6 cm oval height density area in the right fro ntal scalp partially included on the field-of-vi No skull fracture seen in this area. CONCLUSION: No facial bone fracture seen. Mukesh Catherine MD on June 27, 2017 at 18:51 Board Certified Radiologist. This report was verified electronically.
[2017-06-27 18:59] LABS: HEMO FLAGS AUTO DIFF
[2017-06-27 19:09] LABS: APTT (PATIENT) 26.9 SEC (24.3-30.1); INTERNATIONAL NORMALIZED RATIO 0.9 RATIO; PROTHROMBIN TIME - PATIENT 10.3 SEC (9.8-11.6)
--- NOTE | 2017-06-27 19:09 | RADRPT ---
EXAM DATE/TIME: 06/27/2017 18:49 [facility] COMPARISON: CHEST SINGLE AP, June 17, 2016, 11:37. INDICATIONS : Head injury and lightheaded. MEDICAL HISTORY : Hypercholesterolemia. Hypertension Asthma. SURGICAL HISTORY : None. ENCOUNTER: Initial ACUITY: 1 day PAIN SCORE: 2/10 LOCATION: Bilateral chest FINDINGS: A single view of the chest demonstrates the lungs to be symmetrically aerated without evidence of mas s, infiltrate or effusion. The heart is normal in size. Dense calcification the left AP window noble lar to prior. Stable right thoracolumbar scoliosis. CONCLUSION: The lungs are clear. Mukesh Catherine MD on June 27, 2017 at 19:06 Board Certified Radiologist. This report was verified electronically.
[2017-06-27 19:38] LABS: PLATELET ESTIMATE SMEAR NORMAL (NORMAL); PLATELET MORPHOLOGY NORMAL (NORMAL); SCAN/DIFF AUTO DIFF CONFIRMED
[2017-06-27 21:14] LABS: ANION GAP 6 MEQ/L (5-15); BICARBONATE 27.5 MEQ/L (21.0-32.0); BLOOD UREA NITROGEN 8 MG/DL (7-18); CHLORIDE 107 MEQ/L (98-107); GLOMERULAR FILTRATION RATE 138 ML/MIN (>89); POTASSIUM 3.6 MEQ/L (3.5-5.1); SODIUM (NA) 140 MEQ/L (136-145)
[2017-06-27 21:16] LABS: CREATINE KINASE 45 U/L (26-192)
[2017-06-27] MEDS ORDERED: PROPRANOLOL HCL 20 MG TAB PO ONE (22:45)
[2017-06-27 23:26] LABS: CREATINE KINASE 30 U/L (26-192)
[2017-06-28 00:28] VITALS: BP_SYST 188; BP_SYST 99; BP_DIAS 61; BP_DIAS 87; PULSE 62; PULSE 87; RESP 18; TEMP 98.4; O2SAT 98
[2017-06-28 01:12] VITALS: BP 160/105
[2017-06-28 02:53] LABS: CREATINE KINASE 26 U/L (26-192)
[2017-06-28 03:21] VITALS: BP 166/78; PULSE 82; RESP 18; TEMP 98.5; O2SAT 97
[2017-06-28] MEDS: SODIUM CHLORIDE 0.9% FLUSH 10 ML FLUSH IVF PRN (03:39)
[2017-06-28 04:00] VITALS: PULSE 79
[2017-06-28] MEDS ORDERED: MORPHINE SULFATE 2 MG/ML INJ IV PRN (04:00)
[2017-06-28 07:12] VITALS: BP 174/86; PULSE 85; RESP 16; TEMP 98.3; O2SAT 93
[2017-06-28] MEDS ORDERED: busPIRone HCL 10 MG TAB PO PRN (08:30)
[2017-06-28] MEDS ORDERED: LISINOPRIL 10 MG TAB PO SCH (08:30)
--- NOTE | 2017-06-28 08:39 | HHI.HP ---
[facility] Primary Care Physician Savannah James MD Chief Complaint Headache History of Present Illness This is a 62-year-old female with history of hypertension, osteoporosis, chronic back pain, and anxiety that presents to the ED and then subsequently admitted to chest pain center with a complaint of "I have a really bad headache. " States it began 8 days ago when she tripped in her garage and struck her head. No loss of consciousness. No neck injury. Denies back injury but does have chronic back pain. Denies numbness tingling or weakness in extremities. Denies seizure activity. Denies visual activity. She has felt somewhat dizzy since. She saw her primary care physician Dr. Savannah James and ordered a CT brain however she not have it done on an outpatient basis. She had done in the ED last evening. Has history of migraines but states this is a different type of headache. She was admitted to chest pain center and had not discussed chest discomfort at all. After the second time of specifically asking about chest discomfort she stated "I've been having panic attacks since the fall and they got worse over the last couple days and that is when I've had chest pain." She states that she will take the BuSpar and a Lortab in the discomfort will go away but it will come back after about an hour and a half. No shortness of breath, nausea, or diaphoresis associated with the pain. She saw nothing otherwise to bring on the discomfort. Nothing seems to worsen and medications do seem to help for short period time. Denies history of CAD. She was in the Chest Pain Center., February of last year and at that time had a nonischemic Lexiscan an EF of 69%. Review of Systems General: Patient denies fevers, chills recent, and recent travel HEENT: Patient complains of a headache. States that has been present since striking her head on the floor in her garage a days ago. Points to a hematoma on the right parietal region/forehead and she also has quite a bit of ecchymosis around the right orbit. Patient denies sore throat, difficulty swallowing. Cardiovascular: Has the chest discomfort as mentioned above. Denies sensation of heart beating rapidly or irregularly. No syncope. Denies diaphoresis. Respiratory: Denies shortness of breath or inspirational chest discomfort. Denies coughing wheezing or hemoptysis. GI: Patient denies nausea, vomiting, diarrhea, abdominal pain, bloody stools. Musculoskeletal: Patient denies joint pain or edema. Denies calf pain or edema. Chronic low back pain but that has not changed. Neurovascular: Patient denies numbness, tingling, weakness in extremities. Once a frontal headache as mentioned above. Complains of dizziness. Denies visual changes. Denies loss of consciousness and seizure. Endocrine: Denies polyuria and polydipsia. Hematologic: Generally denies easy bruising however she does complain of a bruise to the right periorbital region from her fall 8 days ago. Skin: Denies rash or itching. Past Family Social History Allergies: Coded Allergies: No Known Allergies (Verified , 12/24/16) Past Medical History Hypertension, anxiety, depression, iron deficiency anemia, chronic low back pain , hepatitis C, osteoporosis, fractured right clavicle February of this year, and tobacco abuse. Denies hyperlipidemia, diabetes, and known CAD. Past Surgical History Tonsillectomy. Reported Medications Reported Meds & Active Scripts Active Propranolol (Propranolol HCl) 20 Mg Tab 20 Mg PO BID 30 Days Omeprazole 20 Mg Tab 20 Mg PO DAILY Reported Tizanidine (Tizanidine HCl) 4 Mg Tab 4 Mg PO TID Remeron (Mirtazapine) 15 Mg Tab 15 Mg PO HS [place] (Hydrocodone-Acetaminophen) 10-325 Mg Tab 1 Tab PO Q4H PRN Lexapro (Escitalopram Oxalate) 10 Mg Tab 10 Mg PO DAILY Buspirone (Buspirone HCl) 10 Mg Tab 10 Mg PO DAILY PRN Amitriptyline (Amitriptyline HCl) 25 Mg Tab 25 Mg PO HS Active Ordered Medications Current Medications Medications (Trade) Dose Ordered Sig/Shan Route Start Time Stop Time Status Last Admin (NS Flush) 2 ml UNSCH PRN IVF 06/27/17 18:30 06/28/17 03:39 (NS Flush) 2 ml BID IV FLUSH 06/28/17 09:00 (Morphine Inj) 2 mg Q4H PRN IV 06/28/17 04:00 06/28/17 03:39 (Elavil) 25 mg HS PO 06/28/17 21:00 (Buspar) 10 mg DAILY PRN PO 06/28/17 08:30 (Lexapro) 10 mg DAILY PO 06/28/17 09:00 (Remeron) 15 mg HS PO 06/28/17 21:00 UNV (Inderal) 20 mg BID PO 06/28/17 09:00 UNV (Zanaflex) 4 mg TID PO 06/28/17 09:00 UNV Non-Formulary Medication 20 mg DAILY PO 06/28/17 09:00 UNV (Prinivil) 10 mg DAILY PO 06/28/17 08:30 UNV Family History Denies family history of CAD. Social History Smokes one half pack of cigarettes daily for proximally 40 years. Denies alcohol or illicit drugs. She lives with her . Physical Exam Vital Signs Vital Signs Date Time Temp Pulse Resp B/P (MAP) Pulse Ox O2 Delivery O2 Flow Rate FiO2 06/28/17 07:12 98.3 85 16 174/86 (115) 93 06/28/17 04:00 79 06/28/17 03:21 98.5 82 18 166/78 (107) 97 06/28/17 01:12 160/105 (123) 06/28/17 00:28 98.4 87 18 188/87 (120) 98 06/27/17 23:03 96 20 165/80 (108) 96 06/27/17 23:00 96 20 165/80 (108) 96 Room Air 06/27/17 22:35 98 20 173/84 (113) 95 Room Air 06/27/17 22:30 102 20 171/80 (110) 96 Room Air 06/27/17 22:24 94 06/27/17 22:00 98 20 164/75 (104) 96 Room Air 06/27/17 21:00 98 20 161/77 (105) 95 Room Air 06/27/17 20:00 94 20 146/79 (101) 95 Room Air 06/27/17 19:00 92 20 156/79 (104) 96 Room Air 06/27/17 18:37 16 06/27/17 18:25 98 Room Air 06/27/17 18:25 16 98 Room Air 06/27/17 18:25 78 16 98 Room Air 06/27/17 17:52 98.4 114 16 197/111 (139) 97 Physical Exam GENERAL: This is a well-nourished, well-developed patient, in no apparent distress. Patient speaks in clear complete sentences. Patient is pleasant. HEENT: Head has a hematoma to the right parietal/forehead region. There right periorbital ecchymosis however the orbital itself is not tender to palpate. Ocular muscles are intact. PERRLA. Neck is supple without lymphadenopathy and trachea is midline. No JVD or carotid bruits. CARDIOVASCULAR: Regular rate and rhythm without murmurs, gallops, or rubs. RESPIRATORY: Clear to auscultation. Breath sounds equal bilaterally. No wheezes , rales, or rhonchi. Chest wall is nontender. No use of accessory muscles. GASTROINTESTINAL: Abdomen is nontender, nondistended. Abdomen soft. No obvious pulsatile mass or bruit. No CVA tenderness. Strong femoral pulses bilaterally. Normal bowel sounds in all quadrants. MUSCULOSKELETAL: Patient is moving upper and lower extremities freely. No calf tenderness or edema, no Homans sign. Strong pulses in upper and lower extremities. NEUROLOGICAL: PERRLA. Patient is alert and oriented. Cranial nerves 2-12 are grossly intact. No focal deficits and speech is clear. SKIN: No rash and turgor is normal. There is ecchymosis to the right periorbital region. There is hematoma and abrasion to right forehead/parietal region. Laboratory Laboratory Tests Test 06/27/17 18:00 06/27/17 20:05 06/27/17 22:45 06/28/17 02:10 White Blood Count 11.3 Red Blood Count 4.56 Hemoglobin 13.9 Hematocrit 41.2 Mean Corpuscular Volume 90.3 Mean Corpuscular Hemoglobin 30.5 Mean Corpuscular Hemoglobin Concent 33.8 Red Cell Distribution Width 17.5 Platelet Count 247 Mean Platelet Volume 7.6 Neutrophils (%) (Auto) 69.0 Lymphocytes (%) (Auto) 22.0 Monocytes (%) (Auto) 7.4 Eosinophils (%) (Auto) 1.1 Basophils (%) (Auto) 0.5 Neutrophils # (Auto) 7.8 Lymphocytes # (Auto) 2.5 Monocytes # (Auto) 0.8 Eosinophils # (Auto) 0.1 Basophils # (Auto) 0.1 CBC Comment AUTO DIFF Differential Comment AUTO DIFF CONFIRMED Platelet Estimate NORMAL Platelet Morphology Comment NORMAL Prothrombin Time 10.3 Prothromb Time International Ratio 0.9 Activated Partial Thromboplast Time 26.9 Blood Urea Nitrogen 8 Creatinine 0.46 Random Glucose 87 Calcium Level 8.3 Magnesium Level 2.0 Sodium Level 140 Potassium Level 3.6 Chloride Level 107 Carbon Dioxide Level 27.5 Anion Gap 6 Estimat Glomerular Filtration Rate 138 Total Creatine Kinase 45 30 26 Troponin I LESS THAN 0.02 LESS THAN 0.02 LESS THAN 0.02 Result Diagram: 06/27/17 1800 06/27/172004 Imaging Vital Signs Date Time Temp Pulse Resp B/P (MAP) Pulse Ox O2 Delivery O2 Flow Rate FiO2 06/28/17 07:12 98.3 85 16 174/86 (115) 93 06/28/17 04:00 79 06/28/17 03:21 98.5 82 18 166/78 (107) 97 06/28/17 01:12 160/105 (123) 06/28/17 00:28 98.4 87 18 188/87 (120) 98 06/27/17 23:03 96 20 165/80 (108) 96 06/27/17 23:00 96 20 165/80 (108) 96 Room Air 06/27/17 22:35 98 20 173/84 (113) 95 Room Air 06/27/17 22:30 102 20 171/80 (110) 96 Room Air 06/27/17 22:24 94 06/27/17 22:00 98 20 164/75 (104) 96 Room Air 06/27/17 21:00 98 20 161/77 (105) 95 Room Air 06/27/17 20:00 94 20 146/79 (101) 95 Room Air 06/27/17 19:00 92 20 156/79 (104) 96 Room Air 06/27/17 18:37 16 06/27/17 18:25 98 Room Air 06/27/17 18:25 16 98 Room Air 06/27/17 18:25 78 16 98 Room Air 06/27/17 17:52 98.4 114 16 197/111 (139) 97 Last 48 hours Impressions Chest X-Ray 06/27/17 1822 Signed Impressions: Service Date/Time: Tuesday, June 27, 2017 18:49 - CONCLUSION: The lungs are clear. Mukesh Catherine MD Maxillofacial CT 06/27/17 0000 Signed Impressions: Service Date/Time: Tuesday, June 27, 2017 18:33 - CONCLUSION: No facial bone fracture seen. Mukesh Catherine MD Head CT 06/27/17 0000 Signed Impressions: Service Date/Time: Tuesday, June 27, 2017 18:30 - CONCLUSION: No acute disease. Mukesh Winn Jr., MD Course EKGs have sinus rhythm without significant ST segment depressions or elevations. Caprini VTE Risk Assessment Caprini VTE Risk Assessment: Mod/High Risk (score >= 2) Caprini Risk Assessment Model Point Value = 1 Point Value = 2 Point Value = 3 Point Value = 5 Age 41-60 Minor surgery BMI > 25 kg/m2 Swollen legs Varicose veins or History of unexplained or recurrent spontaneous Oral contraceptives or hormone replacement Sepsis (< 1 month) Serious lung disease, including pneumonia (< 1 month) Abnormal pulmonary function Acute myocardial infarction Congestive heart failure (< 1 month) History of inflammatory bowel disease Medical patient at bed rest Age 61-74 Arthroscopic surgery Major open surgery (> 45 min) Laparoscopic surgery (> 45 min) Malignancy Confined to bed (> 72 hours) Immobilizing plaster cast Central venous access Age >= 75 History of VTE Family history of VTE Factor V Leiden Prothrombin [id number] Lupus anticoagulant Anticardiolipin antibodies Elevated serum homocysteine Heparin-induced thrombocytopenia Other congenital or acquired thrombophilia Stroke (< 1 month) Elective arthroplasty Hip, pelvis, or leg fracture Acute spinal cord injury (< 1 month) Prophylaxis Regimen Total Risk Factor Score Risk Level Prophylaxis Regimen 0-1 Low Early ambulation 2 Moderate Order ONE of the following: *Sequential Compression Device (SCD) *Heparin 5000 units SQ BID 3-4 Higher Order ONE of the following medications: *Heparin 5000 units SQ TID *Enoxaparin/Lovenox 40 mg SQ daily (WT < 150 kg, CrCl > 30 mL/min) *Enoxaparin/Lovenox 30 mg SQ daily (WT < 150 kg, CrCl > 10-29 mL/min) *Enoxaparin/Lovenox 30 mg SQ BID (WT < 150 kg, CrCl > 30 mL/min) AND/OR *Sequential Compression Device (SCD) 5 or more Highest Order ONE of the following medications: *Heparin 5000 units SQ TID (Preferred with Epidurals) *Enoxaparin/Lovenox 40 mg SQ daily (WT < 150 kg, CrCl > 30 mL/min) *Enoxaparin/Lovenox 30 mg SQ daily (WT < 150 kg, CrCl > 10-29 mL/min) *Enoxaparin/Lovenox 30 mg SQ BID (WT < 150 kg, CrCl > 30 mL/min) AND *Sequential Compression Device (SCD) Assessment and Plan Assessment and Plan * Chest pain: Patient has had serial cardiac enzymes and EKGs for ruling out purposes. Her discomfort does not seem to be cardiac. She was seen by Dr. Garvey of cardiology in the chest pain center. Nuclear stress testing was offered to the patient however patient has decided she would rather follow-up with her physician to have this arranged if needed. She certainly can return to ED she changes her mind. * Headache: Patient should follow-up with PCP. * Hypertension: We will continue her medication. She also needs to restart her lisinopril. Patient is stable at this time. She is agreeable to this plan. Rishabh Monge Jun 28, 2017 08:39
[2017-06-28] MEDS ORDERED: LISIPOW PO (08:52)
--- NOTE | 2017-06-28 08:53 | HHI.DCPOC ---
Discharge Care Plan Diagnosis: (1) Headache (2) Chest pain (3) Hypertension (4) Closed head injury (5) Facial contusion Goals to Promote Your Health RESTART THE LISINOPRIL THAT YOU HAVE AT HOME. * To prevent worsening of your condition and complications * To maintain your health at the optimal level Directions to Meet Your Goals Take your medications as prescribed Follow your dietary instruction Follow activity as directed Keep your appointments as scheduled Take your immunizations and boosters as scheduled If your symptoms worsen call your PCP, if no PCP go to Urgent Care Center or Emergency Room Smoking is Dangerous to Your Health. Avoid second hand smoke Call the 24-hour hour crisis hotline for domestic abuse at Rishabh Monge Jun 28, 2017 08:53
[2017-06-28 09:00] VITALS: PULSE 89
[2017-06-28] MEDS ORDERED: PRAVASTATIN SOD 40 MG TAB PO SCH (09:00)
[2017-06-28] MEDS ORDERED: SODIUM CHLORIDE 0.9% FLUSH 10 ML FLUSH IV FLUSH SCH (09:00)
[2017-06-28] MEDS ORDERED: ESCITALOPRAM OXALATE 10 MG TAB PO SCH (09:00)
[2017-06-28] MEDS ORDERED: PROPRANOLOL HCL 20 MG TAB PO SCH (09:00)
--- NOTE | 2017-06-28 09:04 | PD.CARD.PN ---
Subjective Subjective Remarks Pt seen and examined with PA. She presented with CLINE as a result of a fall and has only had vague chest pain as a result of "anxiety attacks" resulting. She has good outpatient care with Dr. James but was sent to ED because further work up of her CLINE would be difficult over the holiday weekend on an OP basis. I have discussed with her the hesitancy i have subjecting her to a walking ETT with her recent head injury and also her HTN. We explained that a nuclear test would be the preferred option but she prefers to have additional testing done on an OP basis if possible. I am in support of her decision so we will allow her to disch. to continue OP FU with her PCP. Objective Medications Current Medications Medications (Trade) Dose Ordered Sig/Shan Route Start Time Stop Time Status Last Admin (NS Flush) 2 ml UNSCH PRN IVF 06/27/17 18:30 06/28/17 03:39 (NS Flush) 2 ml BID IV FLUSH 06/28/17 09:00 (Morphine Inj) 2 mg Q4H PRN IV 06/28/17 04:00 06/28/17 03:39 (Elavil) 25 mg HS PO 06/28/17 21:00 (Buspar) 10 mg DAILY PRN PO 06/28/17 08:30 (Lexapro) 10 mg DAILY PO 06/28/17 09:00 (Remeron) 15 mg HS PO 06/28/17 21:00 (Inderal) 20 mg BID PO 06/28/17 09:00 (Zanaflex) 4 mg TID PO 06/28/17 09:00 (Pravachol) 40 mg DAILY PO 06/28/17 09:00 (Prinivil) 10 mg DAILY PO 06/28/17 08:30 Vital Signs / I&O Vital Signs Date Time Temp Pulse Resp B/P (MAP) Pulse Ox O2 Delivery O2 Flow Rate FiO2 06/28/17 07:12 98.3 85 16 174/86 (115) 93 06/28/17 04:00 79 06/28/17 03:21 98.5 82 18 166/78 (107) 97 06/28/17 01:12 160/105 (123) 06/28/17 00:28 98.4 87 18 188/87 (120) 98 06/27/17 23:03 96 20 165/80 (108) 96 06/27/17 23:00 96 20 165/80 (108) 96 Room Air 06/27/17 22:35 98 20 173/84 (113) 95 Room Air 06/27/17 22:30 102 20 171/80 (110) 96 Room Air 06/27/17 22:24 94 06/27/17 22:00 98 20 164/75 (104) 96 Room Air 06/27/17 21:00 98 20 161/77 (105) 95 Room Air 06/27/17 20:00 94 20 146/79 (101) 95 Room Air 06/27/17 19:00 92 20 156/79 (104) 96 Room Air 06/27/17 18:37 16 06/27/17 18:25 98 Room Air 06/27/17 18:25 16 98 Room Air 06/27/17 18:25 78 16 98 Room Air 06/27/17 17:52 98.4 114 16 197/111 (139) 97 I/O 06/27/17 06/27/17 06/27/17 06/28/17 06/28/17 06/28/17 07:00 15:00 23:00 07:00 15:00 23:00 Intake Total 50 ml Balance 50 ml Intake Oral 50 ml # Voids 2 Physical Exam Extensive ecchymosis over left face and orbital area. Thin frail appearance with scoliosis Chest Clear to Ausc CV RSR without GRM Laboratory Laboratory Tests Test 06/27/17 18:00 06/27/17 20:05 06/27/17 22:45 06/28/17 02:10 White Blood Count 11.3 TH/MM3 Red Blood Count 4.56 MIL/MM3 Hemoglobin 13.9 GM/DL Hematocrit 41.2 % Mean Corpuscular Volume 90.3 FL Mean Corpuscular Hemoglobin 30.5 PG Mean Corpuscular Hemoglobin Concent 33.8 % Red Cell Distribution Width 17.5 % Platelet Count 247 TH/MM3 Mean Platelet Volume 7.6 FL Neutrophils (%) (Auto) 69.0 % Lymphocytes (%) (Auto) 22.0 % Monocytes (%) (Auto) 7.4 % Eosinophils (%) (Auto) 1.1 % Basophils (%) (Auto) 0.5 % Neutrophils # (Auto) 7.8 TH/MM3 Lymphocytes # (Auto) 2.5 TH/MM3 Monocytes # (Auto) 0.8 TH/MM3 Eosinophils # (Auto) 0.1 TH/MM3 Basophils # (Auto) 0.1 TH/MM3 CBC Comment AUTO DIFF Differential Comment AUTO DIFF CONFIRMED Platelet Estimate NORMAL Platelet Morphology Comment NORMAL Prothrombin Time 10.3 SEC Prothromb Time International Ratio 0.9 RATIO Activated Partial Thromboplast Time 26.9 SEC Blood Urea Nitrogen 8 MG/DL Creatinine 0.46 MG/DL Random Glucose 87 MG/DL Calcium Level 8.3 MG/DL Magnesium Level 2.0 MG/DL Sodium Level 140 MEQ/L Potassium Level 3.6 MEQ/L Chloride Level 107 MEQ/L Carbon Dioxide Level 27.5 MEQ/L Anion Gap 6 MEQ/L Estimat Glomerular Filtration Rate 138 ML/MIN Total Creatine Kinase 45 U/L 30 U/L 26 U/L Troponin I LESS THAN 0.02 NG/ML LESS THAN 0.02 NG/ML LESS THAN 0.02 NG/ML Imaging Last 24 hours Impressions Chest X-Ray 06/27/17 1822 Signed Impressions: Service Date/Time: Tuesday, June 27, 2017 18:49 - CONCLUSION: The lungs are clear. Mukesh Catherine MD Assessment and Plan Problem List: (1) Headache ICD Codes: R51 - Headache Status: Acute (2) Nicotine dependence ICD Codes: F17.200 - Nicotine dependence, unspecified, uncomplicated Status: Chronic Plan: Needs to stop use (3) Scoliosis deformity of spine ICD Codes: M41.9 - Scoliosis, unspecified Status: Chronic (4) Hypertension ICD Codes: I10 - Essential (primary) hypertension Status: Chronic Plan: Restart meds and FU with PCP (5) Hep C w/o coma, chronic ICD Codes: B18.2 - Chronic viral hepatitis C Status: Chronic (6) Atypical chest pain ICD Codes: R07.89 - Other chest pain Status: Acute Plan: Non cardiac. Has RO for ACS. Follow up as OP once CLINE and HTN under better control. Permanent Comment: Discussed this with patient and it is her desire to defer work up at this time to follow up with her PCP with whom she is established. Last Edited By: Jaylen Garvey MD on Jun 28, 2017 09:03 (7) Depression ICD Codes: F32.9 - Major depressive disorder, single episode, unspecified Status: Chronic Plan: She is already under the care of a psychiatrist. (8) Closed head injury ICD Codes: S09.90XA - Unspecified injury of head, initial encounter Status: Acute Plan: CT negative and little else to offer her acutely at this time. She needs to continue FU with Dr. James on an OP basis. Problem Qualifiers (1) Headache: Qualified Codes: R51 - Headache (2) Nicotine dependence: (3) Scoliosis deformity of spine: (4) Hypertension: Qualified Codes: I10 - Essential (primary) hypertension (5) Closed head injury: Qualified Codes: S09.90XA - Unspecified injury of head, initial encounter Jaylen Garvey MD Jun 28, 2017 09:04
--- NOTE | 2017-06-28 14:36 | EKG ---
Date Performed: 06/28/2017 Time Performed: 02:44:30 PTAGE: 62 years EKG: Sinus rhythm NORMAL ECG PREVIOUS TRACING : 06/27/2017 23.10 DOCTOR: Jaylen Garvey Interpretating Date/Time 06/28/2017 14:34:23
--- NOTE | 2017-06-28 14:36 | EKG ---
Date Performed: 06/27/2017 Time Performed: 23:10:30 PTAGE: 62 years EKG: Sinus rhythm NORMAL ECG NO SIG CHANGE PREVIOUS TRACING : 06/27/2017 18.23 DOCTOR: Jaylen Garvey Interpretating Date/Time 06/28/2017 14:34:50
--- NOTE | 2017-06-28 15:11 | EKG ---
Date Performed: 06/27/2017 Time Performed: 18:23:35 PTAGE: 62 years EKG: Sinus rhythm NORMAL ECG Compared to the PREVIOUS TRACING from 12/24/16, no significant change DOCTOR: Umer Joseph Interpretating Date/Time 06/28/2017 15:09:32
[2017-06-28] MEDS ORDERED: AMITRIPTYLINE HCL 25 MG TAB PO SCH (21:00)
[2017-06-28] MEDS ORDERED: MIRTAZAPINE 15 MG TAB PO SCH (21:00)
== END 2017-06-28 10:00 | disposition home or self-care (01) ==
LOC: NEPE 17:50 → NEDA 21:49 → NEPFCDU 23:24
PROVIDERS: ADMIT Internal Medicine Interventional Cardiology; ATTEND Internal Medicine Interventional Cardiology
DX: S00.83XA Contusion of other part of head, initial encounter (principal); R07.89 Other chest pain; I10 Essential (primary) hypertension; G89.29 Other chronic pain; M54.5 Low back pain; W01.198A Fall on same level from slipping, tripping and stumbling with subsequent striking against other object, initial encounter; Y93.9 Activity, unspecified; G43.909 Migraine, unspecified, not intractable, without status migrainosus; D50.9 Iron deficiency anemia, unspecified; M41.9 Scoliosis, unspecified; B18.2 Chronic viral hepatitis C; K86.1 Other chronic pancreatitis; B19.20 Unspecified viral hepatitis C without hepatic coma; M81.0 Age-related osteoporosis without current pathological fracture; Y92.015 Private garage of single-family (private) house as the place of occurrence of the external cause; F41.1 Generalized anxiety disorder; F17.210 Nicotine dependence, cigarettes, uncomplicated; J45.909 Unspecified asthma, uncomplicated; E78.00 Pure hypercholesterolemia, unspecified; K21.9 Gastro-esophageal reflux disease without esophagitis
CPT/HCPCS: 70450; 70486; 71010; 80048; 82550; 83735; 84484; 85025; 85610; 85730; 93005; 96374; 96375; 96376; 99285; G0378; J2270; J2405

== ENCOUNTER 2017-07-07 08:40 | Day surgery (SDC) | payer BC ==
[~2017-07-07] VITALS: Ht 160 cm; Wt 40.9 kg
[~2017-07-07 08:40] MED LIST changes: +AMIT25TA9 PO; +BUSP10TA PO; -CLON.5 PO; -CYMB30CA PO; +HYDR-3366 PO; -HYDR-3533 PO; +LEXA10TA PO; -LISI-515 PO; +LISIPOW PO; -LURA20TA PO; -MELO7.5T27 PO; -NAPR1TAB98 PO; +REME15TA PO; +TIZA4TAB PO; -TRAZ50TA12 PO
[2017-07-07 09:01] VITALS: BP 209/114; PULSE 82; RESP 20; TEMP 98.9; O2SAT 95
[2017-07-07] MEDS ORDERED: LISI2.5T3 PO (09:01)
[2017-07-07] MEDS ORDERED: SODIUM CHLOR 0.9% 1000 ML IV SCH (09:15)
[2017-07-07] MEDS ORDERED: SODIUM CHLORIDE 2 ML FLUSH PRN IV FLUSH (09:15)
[2017-07-07] MEDS ORDERED: MIDAZOLAM HCL 2 MG/2 ML VIAL ONE ×2 (11:21→13:23)
[2017-07-07] MEDS ORDERED: LIDOCAINE 1%/EPINEPHrine 1:100,000 SOLN 20 ML VIAL ONE (11:33)
--- NOTE | 2017-07-07 12:49 | PD.RAD ---
Post CT Procedure Prog Note Pre Procedure Diagnosis: (1) Fracture of right clavicle with nonunion Post Procedure Diagnosis: (1) Fracture of right clavicle with nonunion Procedure Date: Jul 07, 2017 Supervising Radiologist: Anthony Rubio Anesthesia: Local, Analgesia, Conscious Sedation Plan of Activity Patient to Unit: ROPU Patient Condition: Good See PACS Report for procedural detail/treatment Biopsy Imaging Guidance: CT Biopsy Procedure: Other (Right clavicle) Specimen: Core Biopsy (Bone drill bx x 3) Anthony Rubio MD Jul 07, 2017 12:49
[2017-07-07 12:56] VITALS: BP 196/122; PULSE 85; RESP 20; TEMP 98.8; O2SAT 92
[2017-07-07] MEDS ORDERED: oxyCODONE/ACETAMINOPHEN 5 MG/325 MG TAB PO PRN (13:00)
[2017-07-07 13:11] VITALS: BP 188/113; PULSE 85; RESP 20; O2SAT 95
[2017-07-07 13:41] VITALS: BP 188/101; PULSE 85; RESP 20; O2SAT 95
--- NOTE | 2017-07-07 13:52 | RADRPT ---
EXAM DATE/TIME: 07/07/2017 11:54 [place] COMPARISON: No previous studies available for comparison.q INDICATIONS : Right clavicle mass. SEDATION TIME: 30 minutes BIOPSY SITE: Right clavicle MEDICATION(S): 1.) 3 mg midazolam (Versed) IV 2.) 150 mcg fentanyl (Sublimaze) IV DEVICE(S): 1.) 12 gauge Bone biopsy needle MEDICAL HISTORY : Hypertension. SURGICAL HISTORY : Hysterectomy. ENCOUNTER: Initial ACUITY: 1 day PAIN SCORE: 0/10 LOCATION: Bilateral chest A total of two core specimen(s) were obtained and sent to the laboratory for pathologic evaluation. PROCEDURE: 1. CT guided bone, superficial biopsy. 2. Conscious sedation with continuous EKG and oximetry monitoring. 3. EKG and oximetry remained stable throughout the procedure. Prior to the procedure informed consent was obtained. Any appropriate prior imaging studies were rev iewed. Using automated exposure control and adjustment of the mA and/or kV according to patient size, radiat ion dose was kept as low as reasonably achievable to obtain optimal diagnostic quality images. DICOM format image data is available electronically for review and comparison. The site was prepped in a sterile fashion. Full sterile technique was used, including cap, mask, eb rile gloves and gown and a large sterile sheet. Hand hygiene and 2% chlorhexidine and/or betadine/al cohol prep was utilized per protocol for cutaneous antisepsis. The skin and subcutaneous tissues wer e infiltrated with local anesthetic solution. With CT guidance the previously identified target was localized. Biopsy was performed using the presc ribed needle as above. Adequate hemostasis was obtained with compression at the puncture site. Follow-up CT scan reveals no hemorrhage. The patient tolerated the procedure well and there were no complications. The patient was returned to the Radiology Outpatient Unit in stable condition. CONCLUSION: Uncomplicated CT guided biopsy. Anthony Rubio MD on July 07, 2017 at 13:49 Board Certified Radiologist. This report was verified electronically.
[2017-07-07] MEDS ORDERED: ACETAMINOPHEN/HYDROcodone 325 MG/10 MG TAB PO ONE (14:00)
[2017-07-07 14:11] VITALS: BP 188/101; PULSE 85; RESP 18; O2SAT 96
[2017-07-07] MEDS ORDERED: SODIUM CHLORIDE 2 ML FLUSH BID IV FLUSH SCH (21:00)
== END 2017-07-07 14:33 | disposition home or self-care (01) ==
LOC: HRAD 08:40 → HRIP 08:44 → HRAD 14:33
PROVIDERS: ATTEND Internal Medicine
DX: M84.411A Pathological fracture, right shoulder, initial encounter for fracture (principal); I10 Essential (primary) hypertension
CPT/HCPCS: 20220; 77012; 88305; 88311; 99152; 99153; J2250; J3010; J7030

== ENCOUNTER 2017-10-03 07:10 | Observation (INO) | payer BC, OTHER ==
[~2017-10-03] VITALS: Ht 160 cm; Wt 45.0 kg
[2017-10-03] VITALS (7 sets, daily range): BP systolic 175–215; BP diastolic 95–118; PULSE 75–88; RESP 18–23; TEMP 98.6; O2SAT 97–99
[~2017-10-03 07:10] MED LIST changes: +LISI2.5T3 PO; -LISIPOW PO
--- NOTE | 2017-10-03 07:20 | PD ---
HPI Chief Complaint: Chest Pain Time Seen by Provider: 07:20 Travel History International Travel<30 days: No Contact w/Intl Traveler<30days: No Traveled to known affect area: No History of Present Illness HPI 62-year-old female came to the emergency room with history of chest pain and chest tightness that's been going on for past 2-3 days. Patient says she has anxiety and this happens on and off frequently and multiple times in past 2 years. Patient has been unable to sleep because of this. Last night she took some Advil PM. She seems anxious here and in moderate distress. She points to her entire chest when asked for the location of the pain. She describes this as chest tightness. No aggravating or relieving factors identified. The pain comes and goes. Her blood pressure was 200 systolic in triage and 211 in the room. She does have history of hypertension and has been taking her medications like she supposed to she says. Patient is a smoker. She had a stress test in 2015 which was negative. She was admitted in the chest pain center in June 2017 when she refused to get a stress test and wanted an outpatient stress test done. However patient says she never ended up getting another outpatient stress test. [facility] Past Medical History Narrative Medical List of her past medical, surgical, social and family history is reviewed from the nursing note. Asthma: Yes Anxiety: Yes Depression: Yes Heart Rhythm Problems: No Cancer: No Cardiac Catheterization: No Cardiovascular Problems: Yes (HTN) High Cholesterol: Yes Chest Pain: Yes Congestive Heart Failure: No Diabetes: No Diminished Hearing: No Endocrine: No Gastrointestinal Disorders: Yes (PANCREATITIS) GERD: Yes Genitourinary: No Hepatitis: Yes (hep c) Heparin Induced Thrombocytopen: No Hypertension: Yes Immune Disorder: No Musculoskeletal: Yes (SCOLIOSIS) Neurologic: Yes Psychiatric: Yes Reproductive: No Respiratory: Yes Immunizations Current: Yes Migraines: Yes Menopausal: Yes Past Surgical History Abdominal Surgery: No Cardiac Surgery: No Coronary Artery Bypass Graft: No Ear Surgery: No Endocrine Surgery: No Eye Surgery: No Genitourinary Surgery: No Gynecologic Surgery: No Neurologic Surgery: No Oral Surgery: No Thoracic Surgery: No Tonsillectomy: Yes Other Surgery: Yes (TONSILLECTOMY) Social History Alcohol Use: Yes (occ) Tobacco Use: Yes (1/3 a pack a day ) Substance Use: No Allergies-Medications (Allergen,Severity, Reaction): Coded Allergies: No Known Allergies (Verified Allergy, Unknown, 10/03/17) Comments No known drug allergies. Reported Meds & Prescriptions Reported Meds & Active Scripts Active Amlodipine (Amlodipine Besylate) 5 Mg Tab 5 Mg PO DAILY Propranolol (Propranolol HCl) 20 Mg Tab 20 Mg PO BID 30 Days Omeprazole 20 Mg Tab 20 Mg PO DAILY Reported Lisinopril 20 Mg Tab 20 Mg PO DAILY Epclusa 400 mg-100 mg Tablet (Sofosbuvir/Velpatasvir) 400 Mg-100 Mg Tablet 1 Tab PO HS Tizanidine (Tizanidine HCl) 4 Mg Tab 4 Mg PO TID Remeron (Mirtazapine) 15 Mg Tab 15 Mg PO HS [place] (Hydrocodone-Acetaminophen) 10-325 Mg Tab 1 Tab PO Q4H PRN Buspirone (Buspirone HCl) 10 Mg Tab 10 Mg PO DAILY PRN Amitriptyline (Amitriptyline HCl) 25 Mg Tab 25 Mg PO HS Narrative Medication List of her home medications reviewed from the nursing note. Review of Systems Except as stated in HPI: all other systems reviewed are Neg HENT: Positive: Headaches Cardiovascular: Positive: Chest Pain or Discomfort Physical Exam Narrative GENERAL: Awake, alert, anxious, moderate distress SKIN: Focused skin assessment warm/dry. HEAD: Atraumatic. Normocephalic. EYES: Pupils equal and round. No scleral icterus. No injection or drainage. ENT: No nasal bleeding or discharge. Mucous membranes pink and moist. NECK: Trachea midline. No JVD. CARDIOVASCULAR: Regular rate and rhythm. No murmur appreciated. RESPIRATORY: No accessory muscle use. Clear to auscultation. Breath sounds equal bilaterally. GASTROINTESTINAL: Abdomen soft, non-tender, nondistended. Hepatic and splenic margins not palpable. MUSCULOSKELETAL: No obvious deformities. No clubbing. No cyanosis. No edema. NEUROLOGICAL: Awake and alert. No obvious cranial nerve deficits. Motor grossly within normal limits. Normal speech. PSYCHIATRIC: Appropriate mood and affect; insight and judgment normal. Data Data Last Documented VS Vital Signs Date Time Temp Pulse Resp B/P (MAP) Pulse Ox O2 Delivery O2 Flow Rate FiO2 10/03/17 07:53 79 183/106 (131) Nasal Cannula 2.00 10/03/17 07:33 23 98 10/03/17 07:13 98.6 Orders Orders Electrocardiogram (10/03/17 07:28) Basic Metabolic Panel (Bmp) (10/03/17 07:28) Complete Blood Count With Diff (10/03/17 07:28) Magnesium (Mg) (10/03/17 07:28) Prothrombin Time / Inr (Pt) (10/03/17 07:28) Troponin I (10/03/17 07:28) Ecg Monitoring (10/03/17 07:28) Bilateral Bp Monitoring (10/03/17 07:28) Iv Access Insert/Monitor (10/03/17 07:28) Oximetry (10/03/17 07:28) Oxygen Administration (10/03/17 07:28) Aspirin Chew (Aspirin Chew) (10/03/17 07:30) Sodium Chloride 0.9% Flush (Ns Flush) (10/03/17 07:30) Nitroglycerin Sl (Nitrostat Sl) (10/03/17 07:30) Chest, Pa & Lat (10/03/17 07:28) Acetaminophen (Tylenol) (10/03/17 07:30) Alprazolam (Xanax) (10/03/17 07:30) Clonidine (Catapres) (10/03/17 08:45) Admit Order (Ed Use Only) (10/03/17 08:46) Labs Laboratory Tests Test 10/03/17 07:30 White Blood Count 11.5 TH/MM3 Red Blood Count 4.82 MIL/MM3 Hemoglobin 15.4 GM/DL Hematocrit 45.5 % Mean Corpuscular Volume 94.2 FL Mean Corpuscular Hemoglobin 32.0 PG Mean Corpuscular Hemoglobin Concent 33.9 % Red Cell Distribution Width 13.2 % Platelet Count 276 TH/MM3 Mean Platelet Volume 7.5 FL Neutrophils (%) (Auto) 74.9 % Lymphocytes (%) (Auto) 18.4 % Monocytes (%) (Auto) 4.2 % Eosinophils (%) (Auto) 2.1 % Basophils (%) (Auto) 0.4 % Neutrophils # (Auto) 8.6 TH/MM3 Lymphocytes # (Auto) 2.1 TH/MM3 Monocytes # (Auto) 0.5 TH/MM3 Eosinophils # (Auto) 0.2 TH/MM3 Basophils # (Auto) 0.0 TH/MM3 CBC Comment DIFF FINAL Differential Comment Prothrombin Time 10.0 SEC Prothromb Time International Ratio 1.0 RATIO Blood Urea Nitrogen 9 MG/DL Creatinine 0.76 MG/DL Random Glucose 105 MG/DL Calcium Level 9.0 MG/DL Magnesium Level 2.1 MG/DL Sodium Level 138 MEQ/L Potassium Level 3.8 MEQ/L Chloride Level 105 MEQ/L Carbon Dioxide Level 22.8 MEQ/L Anion Gap 10 MEQ/L Estimat Glomerular Filtration Rate 77 ML/MIN Troponin I LESS THAN 0.02 NG/ML MDM Medical Decision Making Medical Screen Exam Complete: Yes Emergency Medical Condition: Yes Medical Record Reviewed: Yes Interpretation(s) Twelve-lead EKG was reviewed by me. Normal sinus rhythm, normal axis, nonspecific ST-T wave changes. Heart rate of 85 bpm. Differential Diagnosis ACS, non-STEMI, COPD, nonspecific chest pain Narrative Course 8:50 AM. patient was given 2 baby aspirin and 1 sublingual nitroglycerin. She was also given Tylenol for her headache. Current blood pressure is 180 systolic. I've ordered by mouth clonidine. Blood test results of back and within acceptable limits. Chest x-rays negative. Patient will be admitted to the chest pain center to be ruled out. Procedures EKG Prior to Arrival: No Diagnosis Primary Impression: Chest pain Qualified Codes: R07.9 - Chest pain, unspecified Additional Impression: Hypertension Qualified Codes: I10 - Essential (primary) hypertension Admitting Information Admitting Physician Requests: Observation Scripts Amlodipine (Amlodipine) 5 Mg Tab 5 MG PO DAILY for Blood Pressure Management, #30 TAB 0 Refills Prov: Rishabh Monge 10/03/17 Chel Tamayo MD Oct 03, 2017 07:20
[2017-10-03] MEDS ORDERED: SODIUM CHLORIDE 0.9% FLUSH 10 ML FLUSH IVF PRN (07:30)
[2017-10-03] MEDS ORDERED: ASPIRIN 81 MG CHEW TAB PO ONE (07:30)
[2017-10-03] MEDS ORDERED: NITROGLYCERIN 0.4 MG SL 25 TABS/BTL SL ONE (07:30)
[2017-10-03] MEDS ORDERED: ACETAMINOPHEN 325 MG TAB PO ONE (07:30)
[2017-10-03] MEDS ORDERED: ALPRAZolam 0.5 MG TAB PO ONE (07:30)
[2017-10-03 07:58] LABS: AUTOMATED NEUTROPHIL # 8.6 TH/MM3 (1.8-7.7); BASOPHIL % 0.4 % (0.0-2.0); EOSINOPHIL # 0.2 TH/MM3 (0-0.4); EOSINOPHIL % 2.1 % (0.0-4.0); HEMATOCRIT 45.5 % (35.0-46.0); HEMOGLOBIN 15.4 GM/DL (11.6-15.3); LYMPH % 18.4 % (9.0-44.0); LYMPHOCYTE # 2.1 TH/MM3 (1.0-4.8); MEAN CELL VOLUME 94.2 FL (80.0-100.0); MEAN CORPUSCULAR HGB CONC 33.9 % (32.0-36.0); MEAN PLATELET VOLUME 7.5 FL (7.0-11.0); MONO % 4.2 % (0.0-8.0); MONOCYTE # 0.5 TH/MM3 (0-0.9); NEUT % 74.9 % (16.0-70.0); PLATELET COUNT 276 TH/MM3 (150-450); RED BLOOD COUNT 4.82 MIL/MM3 (4.00-5.30); RED CELL DISTRIBUTION WIDTH 13.2 % (11.6-17.2); WHITE BLOOD COUNT 11.5 TH/MM3 (4.0-11.0)
[2017-10-03 08:14] LABS: BICARBONATE 22.8 MEQ/L (21.0-32.0); BLOOD UREA NITROGEN 9 MG/DL (7-18); CHLORIDE 105 MEQ/L (98-107); CREATININE 0.76 MG/DL (0.50-1.00); GLOMERULAR FILTRATION RATE 77 ML/MIN (>89); GLUCOSE,RANDOM 105 MG/DL (74-106); MAGNESIUM 2.1 MG/DL (1.5-2.5); SODIUM (NA) 138 MEQ/L (136-145)
[2017-10-03 08:17] LABS: TROPONIN I LESS THAN 0.02 NG/ML (0.02-0.05)
--- NOTE | 2017-10-03 08:34 | RADRPT ---
EXAM DATE/TIME: 10/03/2017 08:08 [facility] COMPARISON: No previous studies available for comparison. INDICATIONS : High blood pressure and heart palpitations. MEDICAL HISTORY : Hypercholesterolemia. Hypertension Asthma. SURGICAL HISTORY : Right clavicle bone biopsy. ENCOUNTER: Initial ACUITY: 1 day PAIN SCORE: 0/10 LOCATION: Bilateral chest FINDINGS: Hyperinflation calcified left hilar lymph nodes.. The cardiomediastinal contours are unremarkable. Osseous structures are intact with mild scoliosis CONCLUSION: Hyperinflation, negative for acute process. Mild scoliosis. Rodri Albright MD FACR on October 03, 2017 at 8:33 Board Certified Radiologist. This report was verified electronically.
[2017-10-03] MEDS ORDERED: cloNIDine HCL 0.1 MG TAB PO ONE (08:45)
[2017-10-03] MEDS ORDERED: SOFO1TAB PO (09:00)
--- NOTE | 2017-10-03 09:53 | HHI.HP ---
HPI Primary Care Physician YARELI Agee Chief Complaint Chest Pain History of Present Illness This is a 61-year-old female that presents to ED via private vehicle with her with history of hypertension, depression, chronic back pain, osteopenia , tobacco abuse with a complaint of chest discomfort and hypertension. Patient states she said 4 days of intermittent chest discomfort. She states when occurs during the daytime will last about 10 minutes but she states it is worse at night. She states when she is trying to fall sleep discomfort will occur and will stay all night long. Nothing seems to worsen or improve it. Nothing in particular today brings on the discomfort. States she really does not do much activities with history of chronic pain. Denies associated shortness of breath, nausea, or diaphoresis. Upon reviewing records she had a nonischemic Lexiscan February 2016 with an EF of 69%. She was admitted to the chest pain center June 2017 but declined stress testing at the time stating she would follow-up on an outpatient basis to have it done. She never followed up. Denies recent illness. Denies fevers or chills. Review of Systems General: Patient denies fevers, chills, and recent travel HEENT: Patient denies headache, sore throat, difficulty swallowing. Cardiovascular: Has the chest discomfort as mentioned above. Denies sensation of heart beating rapidly or irregularly. No syncope. Denies diaphoresis. Respiratory: Denies shortness of breath or inspirational chest discomfort. Denies coughing wheezing or hemoptysis. GI: Patient denies nausea, vomiting, diarrhea, abdominal pain, bloody stools. Musculoskeletal: Complains of generalized chronic pain. Denies calf pain or edema. Neurovascular: Patient denies numbness, tingling, weakness in extremities. Denies headache. Endocrine: Denies polyuria and polydipsia. Hematologic: Denies easy bruising. Skin: Denies rash or itching. Past Family Social History Allergies: Coded Allergies: No Known Allergies (Verified Allergy, Unknown, 10/03/17) Past Medical History Hypertension, depression, chronic back pain, tobacco abuse, osteopenia, and scoliosis. Past Surgical History Tonsillectomy Reported Medications Reported Meds & Active Scripts Active Propranolol (Propranolol HCl) 20 Mg Tab 20 Mg PO BID 30 Days Omeprazole 20 Mg Tab 20 Mg PO DAILY Reported Epclusa 400 mg-100 mg Tablet (Sofosbuvir/Velpatasvir) 400 Mg-100 Mg Tablet 1 Tab PO HS Lisinopril 2.5 Mg Tab Unknown Dose PO DAILY Tizanidine (Tizanidine HCl) 4 Mg Tab 4 Mg PO TID Remeron (Mirtazapine) 15 Mg Tab 15 Mg PO HS [place] (Hydrocodone-Acetaminophen) 10-325 Mg Tab 1 Tab PO Q4H PRN Buspirone (Buspirone HCl) 10 Mg Tab 10 Mg PO DAILY PRN Amitriptyline (Amitriptyline HCl) 25 Mg Tab 25 Mg PO HS Active Ordered Medications Current Medications Medications (Trade) Dose Ordered Sig/Shan Route Start Time Stop Time Status Last Admin (NS Flush) 2 ml UNSCH PRN IVF 10/03/17 07:30 10/03/17 07:39 Family History Denies family history of CAD. Social History Smokes one half pack of cigarettes daily for 40 years. Rare alcohol. Denies illicit drugs. She is . Physical Exam Vital Signs Vital Signs Date Time Temp Pulse Resp B/P (MAP) Pulse Ox O2 Delivery O2 Flow Rate FiO2 10/03/17 08:52 82 20 195/95 (128) 99 Nasal Cannula 2.00 10/03/17 07:53 79 183/106 (131) Nasal Cannula 2.00 10/03/17 07:33 76 23 200/106 (137) 98 Nasal Cannula 2.00 10/03/17 07:33 76 200/106 (137) 10/03/17 07:32 98 Nasal Cannula 2.00 10/03/17 07:26 77 23 215/118 (150) 98 Room Air 10/03/17 07:26 77 23 215/118 (150) 98 Room Air 10/03/17 07:13 98.6 79 18 206/107 (140) 99 Physical Exam GENERAL: This is a well-nourished, well-developed patient, in no apparent distress. Patient speaks in clear complete sentences. Patient is pleasant. Her is at the bedside. HEENT: Head is atraumatic and normocephalic. Neck is supple without lymphadenopathy and trachea is midline. No JVD or carotid bruits. CARDIOVASCULAR: Regular rate and rhythm without murmurs, gallops, or rubs. RESPIRATORY: Clear to auscultation. Breath sounds equal bilaterally. No wheezes , rales, or rhonchi. Chest wall is nontender. No use of accessory muscles. GASTROINTESTINAL: Abdomen is nontender, nondistended. Abdomen soft. No obvious pulsatile mass or bruit. No CVA tenderness. Strong femoral pulses bilaterally. Normal bowel sounds in all quadrants. MUSCULOSKELETAL: Patient is moving upper and lower extremities freely. No calf tenderness or edema, no Homans sign. Strong pulses in upper and lower extremities. NEUROLOGICAL: Patient is alert and oriented. Cranial nerves 2-12 are grossly intact. No focal deficits and speech is clear. SKIN: No rash and turgor is normal. Laboratory Laboratory Tests Test 10/03/17 07:30 White Blood Count 11.5 Red Blood Count 4.82 Hemoglobin 15.4 Hematocrit 45.5 Mean Corpuscular Volume 94.2 Mean Corpuscular Hemoglobin 32.0 Mean Corpuscular Hemoglobin Concent 33.9 Red Cell Distribution Width 13.2 Platelet Count 276 Mean Platelet Volume 7.5 Neutrophils (%) (Auto) 74.9 Lymphocytes (%) (Auto) 18.4 Monocytes (%) (Auto) 4.2 Eosinophils (%) (Auto) 2.1 Basophils (%) (Auto) 0.4 Neutrophils # (Auto) 8.6 Lymphocytes # (Auto) 2.1 Monocytes # (Auto) 0.5 Eosinophils # (Auto) 0.2 Basophils # (Auto) 0.0 CBC Comment DIFF FINAL Differential Comment Prothrombin Time 10.0 Prothromb Time International Ratio 1.0 Blood Urea Nitrogen 9 Creatinine 0.76 Random Glucose 105 Calcium Level 9.0 Magnesium Level 2.1 Sodium Level 138 Potassium Level 3.8 Chloride Level 105 Carbon Dioxide Level 22.8 Anion Gap 10 Estimat Glomerular Filtration Rate 77 Troponin I LESS THAN 0.02 Result Diagram: 10/03/1772910/03/17729 Imaging Last 48 hours Impressions Chest X-Ray 10/03/17727 Signed Impressions: Service Date/Time: Tuesday, October 03, 2017 08:08 - CONCLUSION: Hyperinflation, negative for acute process. Mild scoliosis. Rodri Albright MD FACR Course Initial EKG sinus rhythm rate of [address] segment depressions or elevations. Caprini VTE Risk Assessment Caprini VTE Risk Assessment: Mod/High Risk (score >= 2) Caprini Risk Assessment Model Point Value = 1 Point Value = 2 Point Value = 3 Point Value = 5 Age 41-60 Minor surgery BMI > 25 kg/m2 Swollen legs Varicose veins or History of unexplained or recurrent spontaneous Oral contraceptives or hormone replacement Sepsis (< 1 month) Serious lung disease, including pneumonia (< 1 month) Abnormal pulmonary function Acute myocardial infarction Congestive heart failure (< 1 month) History of inflammatory bowel disease Medical patient at bed rest Age 61-74 Arthroscopic surgery Major open surgery (> 45 min) Laparoscopic surgery (> 45 min) Malignancy Confined to bed (> 72 hours) Immobilizing plaster cast Central venous access Age >= 75 History of VTE Family history of VTE Factor V Leiden Prothrombin [id number] Lupus anticoagulant Anticardiolipin antibodies Elevated serum homocysteine Heparin-induced thrombocytopenia Other congenital or acquired thrombophilia Stroke (< 1 month) Elective arthroplasty Hip, pelvis, or leg fracture Acute spinal cord injury (< 1 month) Prophylaxis Regimen Total Risk Factor Score Risk Level Prophylaxis Regimen 0-1 Low Early ambulation 2 Moderate Order ONE of the following: *Sequential Compression Device (SCD) *Heparin 5000 units SQ BID 3-4 Higher Order ONE of the following medications: *Heparin 5000 units SQ TID *Enoxaparin/Lovenox 40 mg SQ daily (WT < 150 kg, CrCl > 30 mL/min) *Enoxaparin/Lovenox 30 mg SQ daily (WT < 150 kg, CrCl > 10-29 mL/min) *Enoxaparin/Lovenox 30 mg SQ BID (WT < 150 kg, CrCl > 30 mL/min) AND/OR *Sequential Compression Device (SCD) 5 or more Highest Order ONE of the following medications: *Heparin 5000 units SQ TID (Preferred with Epidurals) *Enoxaparin/Lovenox 40 mg SQ daily (WT < 150 kg, CrCl > 30 mL/min) *Enoxaparin/Lovenox 30 mg SQ daily (WT < 150 kg, CrCl > 10-29 mL/min) *Enoxaparin/Lovenox 30 mg SQ BID (WT < 150 kg, CrCl > 30 mL/min) AND *Sequential Compression Device (SCD) Assessment and Plan Assessment and Plan * Atypical chest pain: Patient has had first set of cardiac enzymes. Her symptoms are atypical. She has been seen by Dr. Alon Son of cardiology in the chest pain center and will have a Lexiscan. She will be discharged home if stress test is nonischemic with instructions to follow-up with PCP. Return to ED for interval issues. * Hypertension: Resume medications. Add amlodipine 5 mg daily. * Tobacco abuse: Patient has been counseled on importance of smoking cessation. Patient is stable at this time. She is agreeable to this plan. Rishabh Monge Oct 03, 2017 09:53
[2017-10-03] MEDS ORDERED: LISI-515 PO (09:58)
[2017-10-03] MEDS ORDERED: ACETAMINOPHEN/HYDROcodone 325 MG/7.5 MG TAB PO PRN (10:00)
[2017-10-03] MEDS ORDERED: ONDANSETRON HCL 4 MG/2 ML VIAL IV PUSH PRN (10:00)
[2017-10-03] MEDS ORDERED: ACETAMINOPHEN 500 MG CPLT PO PRN (10:00)
[2017-10-03] MEDS ORDERED: busPIRone HCL 10 MG TAB PO PRN (10:15)
[2017-10-03] MEDS ORDERED: ACETAMINOPHEN/HYDROcodone 325 MG/10 MG TAB PO PRN (10:15)
[2017-10-03] MEDS ORDERED: amLODIPine BESYLATE 5 MG TAB PO ONE (10:30)
[2017-10-03] MEDS ORDERED: REGADENOSON INJ 0.4 MG/5 ML SYR ONE (11:00)
--- NOTE | 2017-10-03 12:46 | RADRPT ---
EXAM DATE/TIME: 10/03/2017 10:52 [facility] COMPARISON: No previous studies available for comparison. INDICATIONS : Bilateral chest pain. Angina. DOSE: 26.2 mCi Tc99m Myoview at stress. 8.3 mCi Tc99m Myoview at rest. 0.4 mg Lexiscan STRESS SYMPTOMS: Shortness of breath. EJECTION FRACTION: 63% MEDICAL HISTORY : Hypercholesterolemia. Hypertension. Gastroesophageal reflux disease. Smoker. SURGICAL HISTORY : Hysterectomy. Tonsillectomy. ENCOUNTER: Initial ACUITY: 3 days PAIN SCALE: 8/10 LOCATION: Bilateral chest TECHNIQUE: The patient underwent pharmacologic stress with infusion of prescribed dose. Continuous ECG tracing was monitored during stress. Gated SPECT imaging was performed after stress and conventional SPECT i maging was performed at rest. The examination was performed on a SPECT/CT scanner, both attenuation and non-corrected datasets were reviewed. FINDINGS: DISTRIBUTION: The maximum perfused segment at stress is in the anterior wall. PERFUSION STUDY: The pattern of perfusion at stress is within normal limits. GATED STUDY: There is intact wall motion and thickening without hypokinetic or dyskinetic segments. CONCLUSION: 1. Normal examination RISK CATEGORY: Low (<1% Annual Mortality Rate) Mitchell Mesa MD on October 03, 2017 at 12:43 Board Certified Radiologist. This report was verified electronically.
[2017-10-03] MEDS ORDERED: AMLO5TAB2 PO (13:26)
--- NOTE | 2017-10-03 13:27 | HHI.DCPOC ---
Discharge Care Plan Diagnosis: (1) Chest pain, atypical (2) Hypertension (3) Tobacco abuse Goals to Promote Your Health * To prevent worsening of your condition and complications * To maintain your health at the optimal level Directions to Meet Your Goals Take your medications as prescribed Follow your dietary instruction Follow activity as directed Keep your appointments as scheduled Take your immunizations and boosters as scheduled If your symptoms worsen call your PCP, if no PCP go to Urgent Care Center or Emergency Room Smoking is Dangerous to Your Health. Avoid second hand smoke Call the 24-hour hour crisis hotline for domestic abuse at Rishabh Monge Oct 03, 2017 13:26
--- NOTE | 2017-10-03 15:19 | TR ---
Date Performed: 10/03/2017 Time Performed: 11:15:50 DOCTOR: Alon Son DRUG LIST: CLINICAL HISTORY: ANGINA REASON FOR TEST: Angina REASON FOR ENDING: OBSERVATION: CONCLUSION: Lexiscan stress test was performed under standard four minute protocol. Radionucl[place] e was injected one minute prior to ending the test. No electrocardiographic abormalities were present to suggest ischemia. Nuclear imaging and interpretation are pending. COMMENTS:
--- NOTE | 2017-10-03 17:59 | EKG ---
Date Performed: 10/03/2017 Time Performed: 07:22:53 PTAGE: 62 years EKG: Sinus rhythm NORMAL ECG PREVIOUS TRACING : 06/28/2017 02.44 Since the prior tracing, there has been no significant russell DOCTOR: Michelle Gant Interpretating Date/Time 10/03/2017 18:04:53
[2017-10-03] MEDS ORDERED: AMITRIPTYLINE HCL 25 MG TAB PO SCH (21:00)
[2017-10-03] MEDS ORDERED: MIRTAZAPINE 15 MG TAB PO SCH (21:00)
[2017-10-03] MEDS ORDERED: PROPRANOLOL HCL 20 MG TAB PO SCH (21:00)
[2017-10-04] MEDS ORDERED: PANTOPRAZOLE SOD 20 MG DELAYED RELEASE TAB PO SCH (09:00)
[2017-10-04] MEDS ORDERED: LISINOPRIL 20 MG TAB PO SCH (09:00)
== END 2017-10-03 14:55 | disposition home or self-care (01) ==
LOC: NEPC 07:10 → NEDA 08:48
PROVIDERS: ADMIT Internal Medicine Cardiovascular Disease; ATTEND Internal Medicine Cardiovascular Disease
DX: R07.89 Other chest pain (principal); R51 Headache; I20.9 Angina pectoris, unspecified; R06.02 Shortness of breath; R00.2 Palpitations; I10 Essential (primary) hypertension; E78.00 Pure hypercholesterolemia, unspecified; J45.909 Unspecified asthma, uncomplicated; K21.9 Gastro-esophageal reflux disease without esophagitis; B19.20 Unspecified viral hepatitis C without hepatic coma; M41.9 Scoliosis, unspecified; M54.9 Dorsalgia, unspecified; G89.29 Other chronic pain; M85.80 Other specified disorders of bone density and structure, unspecified site; F32.9 Major depressive disorder, single episode, unspecified; F17.210 Nicotine dependence, cigarettes, uncomplicated; Z79.899 Other long term (current) drug therapy
CPT/HCPCS: 71046; 78452; 80048; 83735; 84484; 85025; 85610; 93005; 93017; 99285; A9502; G0378; J2785

== ENCOUNTER 2018-01-12 10:40 | Emergency (ER) | payer SELFPAY ==
[~2018-01-12] VITALS: Ht 157.5 cm; Wt 45.0 kg
[2018-01-12] VITALS (8 sets, daily range): BP systolic 159–189; BP diastolic 86–105; PULSE 78–87; RESP 18–20; TEMP 97.6; O2SAT 97–99
[~2018-01-12 10:40] MED LIST changes: +AMLO5TAB2 PO; -LEXA10TA PO; +LISI-515 PO; -LISI2.5T3 PO; +SOFO1TAB PO
--- NOTE | 2018-01-12 11:13 | RADRPT ---
EXAM DATE: 01/12/2018 11:07 AM EDT AGE/SEX: 62 years / Female INDICATIONS: Chest pain. CLINICAL DATA: This is the patient's initial encounter. Patient reports that signs and symptoms have been present for 1 day and indicates a pain score of 6/10. MEDICAL/SURGICAL HISTORY: Hypertension. Hypercholesterolemia. Asthma. None. COMPARISON: [facility] – [place], [place], CHEST SINGLE AP, 06/27/2017. . FINDINGS: A single AP view of the chest demonstrates the lungs to be symmetrically aerated without evidence of mass, infiltrate or effusion. A calcified nodule seen within the aorticopulmonary window. This is sta ble. Lungs are hyperinflated bilaterally. The cardiomediastinal contours are unremarkable. Old fract ure involving the right clavicle. CONCLUSION: The lungs are hyperinflated consistent with COPD. No acute infiltrate or effusion. Electronically signed by: Mukesh Winn MD 01/12/2018 11:11 AM EDT
--- NOTE | 2018-01-12 11:33 | PD ---
HPI Chief Complaint: Chest Pain Time Seen by Provider: 11:23 Travel History International Travel<30 days: No Contact w/Intl Traveler<30days: No Traveled to known affect area: No History of Present Illness HPI 62-year-old female complains of chest pain. Patient states that the chest pain started about a week ago. Patient states that just pain aching pain substernally and intermittent. Patient states that she has occasionally sharp stabbing pain substernally. Patient denies any pain radiation. Patient states that she has intermittent palpitation. Patient denies any nausea. Patient states that she has been sweating at night. Patient has history of chronic back pain has been taking hydrocodone for the pain. Patient has history of hypertension anxiety. Patient is a smoker. Patient denies family history of heart disease. Patient denies history of diabetes or hyperlipidemia. Patient states that she had normal stress test more than a year ago. On a scale of 1- 10 the pain is a 5. Patient states that the chest pains not associate with exertion. Patient has history of chronic back pain. Patient has been taking hydrocodone 10 for pain. Patient states the pain is not controlled with hydrocodone. Patient states that the pain made her blood pressure elevated. PFSH Past Medical History Asthma: Yes Anxiety: Yes Depression: Yes Heart Rhythm Problems: No Cancer: No Cardiac Catheterization: No Cardiovascular Problems: Yes (HTN) High Cholesterol: Yes Chest Pain: Yes Congestive Heart Failure: No Diabetes: No Diminished Hearing: No Endocrine: No Gastrointestinal Disorders: Yes (PANCREATITIS) GERD: Yes Genitourinary: No Hepatitis: Yes (HX OF HEP C) Heparin Induced Thrombocytopen: No Hypertension: Yes Immune Disorder: No Musculoskeletal: Yes (SCOLIOSIS) Neurologic: Yes Psychiatric: Yes Reproductive: No Respiratory: Yes Immunizations Current: Yes Migraines: Yes Pancreatitis: Yes Tetanus Vaccination: Unknown Influenza Vaccination: Yes Menopausal: Yes Past Surgical History Abdominal Surgery: No Cardiac Surgery: No Coronary Artery Bypass Graft: No Ear Surgery: No Endocrine Surgery: No Eye Surgery: No Genitourinary Surgery: No Gynecologic Surgery: No Neurologic Surgery: No Oral Surgery: No Thoracic Surgery: No Tonsillectomy: Yes Other Surgery: Yes Family History Family Myocardial Infarction: Yes (GRANDFATHER) Social History Alcohol Use: Yes (occ) Tobacco Use: Yes (1/3 a pack a day ) Substance Use: No Allergies-Medications (Allergen,Severity, Reaction): Coded Allergies: No Known Allergies (Verified Allergy, Unknown, 10/03/17) Reported Meds & Prescriptions Reported Meds & Active Scripts Active Amlodipine (Amlodipine Besylate) 5 Mg Tab 5 Mg PO DAILY Propranolol (Propranolol HCl) 20 Mg Tab 20 Mg PO BID 30 Days Omeprazole 20 Mg Tab 20 Mg PO DAILY Reported Lisinopril 20 Mg Tab 20 Mg PO DAILY Epclusa 400 mg-100 mg Tablet (Sofosbuvir/Velpatasvir) 400 Mg-100 Mg Tablet 1 Tab PO HS Tizanidine (Tizanidine HCl) 4 Mg Tab 4 Mg PO TID Remeron (Mirtazapine) 15 Mg Tab 15 Mg PO HS [place] (Hydrocodone-Acetaminophen) 10-325 Mg Tab 1 Tab PO Q4H PRN Buspirone (Buspirone HCl) 10 Mg Tab 10 Mg PO DAILY PRN Amitriptyline (Amitriptyline HCl) 25 Mg Tab 25 Mg PO HS Review of Systems General / Constitutional: No: Fever Eyes: No: Visual changes HENT: No: Headaches Cardiovascular: Positive: Chest Pain or Discomfort Respiratory: No: Shortness of Breath Gastrointestinal: No: Abdominal Pain Genitourinary: No: Dysuria Musculoskeletal: No: Pain Skin: No Rash Neurologic: No: Weakness Psychiatric: No: Depression Endocrine: No: Polydipsia Hematologic/Lymphatic: No: Easy Bruising Physical Exam Narrative GENERAL: Well-nourished, well-developed patient. SKIN: Focused skin assessment warm/dry. HEAD: Normocephalic. EYES: No scleral icterus. No injection or drainage. NECK: Supple, trachea midline. No JVD or lymphadenopathy. CARDIOVASCULAR: Regular rate and rhythm without murmurs, gallops, or rubs. RESPIRATORY: Breath sounds equal bilaterally. No accessory muscle use. GASTROINTESTINAL: Abdomen soft, non-tender, nondistended. MUSCULOSKELETAL: No cyanosis, or edema. BACK: Nontender without obvious deformity. No CVA tenderness. Neurologic exam normal. Data Data Last Documented VS Vital Signs Date Time Temp Pulse Resp B/P (MAP) Pulse Ox O2 Delivery O2 Flow Rate FiO2 01/12/18 12:00 82 18 159/87 (111) 98 Room Air 01/12/18 10:40 97.6 Orders Orders Electrocardiogram (01/12/18 10:49) Complete Blood Count With Diff (01/12/18 10:49) Basic Metabolic Panel (Bmp) (01/12/18 10:49) Ckmb (Isoenzyme) Profile (01/12/18 10:49) Troponin I (01/12/18 10:49) Chest, Single Ap (01/12/18 10:49) Iv Access Insert/Monitor (01/12/18 10:49) Ecg Monitoring (01/12/18 10:49) Oxygen Administration (01/12/18 10:49) Oximetry (01/12/18 10:49) Hepatic Functional Panel (01/12/18 11:29) Lipase (01/12/18 11:29) Admit Order (Ed Use Only) (01/12/18 12:38) Labs Laboratory Tests Test 01/12/18 11:00 White Blood Count 9.8 TH/MM3 Red Blood Count 4.59 MIL/MM3 Hemoglobin 14.5 GM/DL Hematocrit 43.1 % Mean Corpuscular Volume 93.8 FL Mean Corpuscular Hemoglobin 31.7 PG Mean Corpuscular Hemoglobin Concent 33.7 % Red Cell Distribution Width 13.3 % Platelet Count 295 TH/MM3 Mean Platelet Volume 7.6 FL Neutrophils (%) (Auto) 77.3 % Lymphocytes (%) (Auto) 17.4 % Monocytes (%) (Auto) 4.2 % Eosinophils (%) (Auto) 0.9 % Basophils (%) (Auto) 0.2 % Neutrophils # (Auto) 7.5 TH/MM3 Lymphocytes # (Auto) 1.7 TH/MM3 Monocytes # (Auto) 0.4 TH/MM3 Eosinophils # (Auto) 0.1 TH/MM3 Basophils # (Auto) 0.0 TH/MM3 CBC Comment DIFF FINAL Differential Comment Blood Urea Nitrogen 4 MG/DL Creatinine 0.62 MG/DL Random Glucose 115 MG/DL Calcium Level 8.5 MG/DL Sodium Level 137 MEQ/L Potassium Level 3.8 MEQ/L Chloride Level 101 MEQ/L Carbon Dioxide Level 24.2 MEQ/L Anion Gap 12 MEQ/L Estimat Glomerular Filtration Rate 98 ML/MIN Total Bilirubin 0.3 MG/DL Direct Bilirubin 0.1 MG/DL Indirect Bilirubin 0.2 MG/DL Aspartate Amino Transf (AST/SGOT) 22 U/L Alanine Aminotransferase (ALT/SGPT) 20 U/L Alkaline Phosphatase 75 U/L Total Creatine Kinase 37 U/L Troponin I LESS THAN 0.02 NG/ML Total Protein 7.4 GM/DL Albumin 3.5 GM/DL Lipase 123 U/L [facility] Medical Decision Making Medical Screen Exam Complete: Yes Emergency Medical Condition: Yes Interpretation(s) Last Impressions Chest X-Ray 01/12/18 1049 Signed Impressions: CONCLUSION: The lungs are hyperinflated consistent with COPD. No acute infiltrate or eff usion. 12:34 PM. CBC within normal limits. CMP within normal limits. Cardiac enzymes are normal. Differential Diagnosis Differential diagnoses include anxiety, musculoskeletal, angina, NV, PE, pneumothorax. Narrative Course 62-year-old female with chest pain. Patient will be admitted to the chest pain center. 1316 p.m. Physician assistant fitness manager to chest pain center came over and interviewed the patient. Patient had normal pharmacologic stress test done in October 2017. Patient will be discharged home. Blood pressure elevated from the pain. Morphine 2 mg IV given. Zofran 4 mg ODT. Advised patient start on Lidoderm patch and follow with local physician for blood pressure control and pain control. Diagnosis Primary Impression: Chest pain Qualified Codes: R07.9 - Chest pain, unspecified Additional Impression: Acute exacerbation of chronic low back pain Patient Instructions: General Instructions Additional Instructions: Continue with hydrocodone as directed for pain. Lidoderm patch as directed. Follow-up with personal physician for blood pressure check and pain control. Return if increasing chest pain shortness of breath. Med/Other Pt SpecificInfo: Prescription(s) given Scripts Lidocaine (Lidoderm) 5 % Adh..patch 1 PATCH TOPICAL DAILY, #14 Prov: Jesse Moses MD 01/12/18 Disposition: 01 DISCHARGE HOME Condition: Stable Jesse Moses MD Jan 12, 2018 11:33
[2018-01-12 11:50] LABS: AUTOMATED NEUTROPHIL # 7.5 TH/MM3 (1.8-7.7); BASOPHIL % 0.2 % (0.0-2.0); EOSINOPHIL # 0.1 TH/MM3 (0-0.4); EOSINOPHIL % 0.9 % (0.0-4.0); HEMATOCRIT 43.1 % (35.0-46.0); HEMOGLOBIN 14.5 GM/DL (11.6-15.3); LYMPH % 17.4 % (9.0-44.0); LYMPHOCYTE # 1.7 TH/MM3 (1.0-4.8); MEAN CELL VOLUME 93.8 FL (80.0-100.0); MEAN CORPUSCULAR HEMOGLOBIN 31.7 PG (27.0-34.0); MEAN CORPUSCULAR HGB CONC 33.7 % (32.0-36.0); MEAN PLATELET VOLUME 7.6 FL (7.0-11.0); MONO % 4.2 % (0.0-8.0); MONOCYTE # 0.4 TH/MM3 (0-0.9); NEUT % 77.3 % (16.0-70.0); PLATELET COUNT 295 TH/MM3 (150-450); RED BLOOD COUNT 4.59 MIL/MM3 (4.00-5.30); RED CELL DISTRIBUTION WIDTH 13.3 % (11.6-17.2); WHITE BLOOD COUNT 9.8 TH/MM3 (4.0-11.0)
[2018-01-12 12:16] LABS: BICARBONATE 24.2 MEQ/L (21.0-32.0); BLOOD UREA NITROGEN 4 MG/DL (7-18); CALCIUM 8.5 MG/DL (8.5-10.1); CHLORIDE 101 MEQ/L (98-107); CREATININE 0.62 MG/DL (0.50-1.00); GLOMERULAR FILTRATION RATE 98 ML/MIN (>89); GLUCOSE,RANDOM 115 MG/DL (74-106); SODIUM (NA) 137 MEQ/L (136-145)
[2018-01-12 12:17] LABS: ALBUMIN 3.5 GM/DL (3.4-5.0); DIRECT BILIRUBIN ADULT 0.1 MG/DL (0.0-0.2)
[2018-01-12 12:19] LABS: INDIRECT BILIRUBIN 0.2 MG/DL (0.0-0.8); TOTAL BILIRUBIN ADULT 0.3 MG/DL (0.2-1.0); TOTAL PROTEIN 7.4 GM/DL (6.4-8.2)
[2018-01-12 12:21] LABS: TROPONIN I LESS THAN 0.02 NG/ML (0.02-0.05)
[2018-01-12] MEDS ORDERED: SODIUM CHLORIDE 0.9% FLUSH 10 ML FLUSH IV FLUSH PRN (12:45)
[2018-01-12] MEDS ORDERED: ACETAMINOPHEN 500 MG CPLT PO PRN (12:45)
[2018-01-12] MEDS ORDERED: MORPHINE SULFATE 4 MG/ML INJ IV PUSH ONE (13:15)
[2018-01-12] MEDS ORDERED: ONDANSETRON ODT 4 MG TAB PO ONE (13:15)
[2018-01-12] MEDS ORDERED: LIDO1ADH4 TOPICAL (13:21)
[2018-01-12] MEDS ORDERED: LABETALOL HCL 100 MG/20 ML VIAL IV PUSH ONE ×2 (14:00)
--- NOTE | 2018-01-12 14:22 | EKG ---
Date Performed: 01/12/2018 Time Performed: 10:04:15 PTAGE: 62 years EKG: Sinus rhythm NORMAL ECG Compared to prior electrocardiogram, probably No significant change from prior electroca rdiogram. PREVIOUS TRACING : 10/03/2017 07.22 DOCTOR: Javy Kang Interpretating Date/Time 01/12/2018 14:20:29
[2018-01-12 15:24] LABS: TROPONIN I LESS THAN 0.02 NG/ML (0.02-0.05)
[2018-01-12] MEDS ORDERED: SODIUM CHLORIDE 0.9% FLUSH 10 ML FLUSH IV FLUSH SCH (21:00)
== END 2018-01-12 16:11 | disposition home or self-care (01) ==
LOC: NEPE 10:40 → NEDA 12:40 → UNDOADMOB 12:40
DX: R07.9 Chest pain, unspecified (principal); M54.5 Low back pain; G89.29 Other chronic pain; I10 Essential (primary) hypertension; F17.200 Nicotine dependence, unspecified, uncomplicated
CPT/HCPCS: 71045; 80048; 80076; 82550; 83690; 84484; 85025; 93005; 96374; 96375; 99285; J2270